=== PATIENT | male | born 1970 | race Caucasian/White ===

== ENCOUNTER 2019-09-03 20:13 | Inpatient (IN) | payer MEDICAID, OTHER, SELFPAY ==
[~2019-09-03] VITALS: Ht 193 cm; Wt 249.0 kg
[2019-09-03] MEDS ORDERED: METF-877 PO (20:25)
[2019-09-03] MEDS ORDERED: AMLO10TA5 PO (20:25)
[2019-09-03] MEDS ORDERED: NAPR250T4 PO (20:25)
[2019-09-03] MEDS ORDERED: NS 1,000 ML IV ONE (21:00)
[2019-09-03] MEDS ORDERED: MORPHINE 4 MG/ML 1ML VIAL/SYRINGE (J2270) IV ONE (21:00)
--- NOTE | 2019-09-03 22:20 | REPVR ---
PROCEDURE INFORMATION: Exam: US Duplex Left Lower Extremity Veins, Limited Exam date and time: 09/03/2019 9:53 PM Clinical history: 49 years old, male; Pain; Leg, upper and leg, lower; Left; Additional info: R/O dvt/ swelling TECHNIQUE: Imaging protocol: Real-time Duplex ultrasound of the Left Lower Extremity with 2-D acuna scale, color Doppler flow and spectral waveform analysis with image documentation. Limited exam focused on the left lower extremity veins. COMPARISON: No relevant prior studies available. FINDINGS: Left deep veins: Suboptimal visualization of the distal femoral vein. The common femoral, proximal to mid femoral and popliteal veins are patent without thrombus. Normal compressibility, augmentation response and Doppler waveforms. Left superficial veins: Unremarkable. Saphenofemoral junction is patent without thrombus. Soft tissues: Unremarkable. IMPRESSION: Somewhat limited examination without sonographic evidence of deep vein thrombosis. Electronically signed by: Dwain Simon On 09/03/2019 22:19:56 PM
[2019-09-03 22:43] LABS: BASO % 0.3 % (0.0-1.0); EOS # 0.2 10^3/uL (0.0-0.5); EOS % 1.8 % (0.0-3.0); HEMATOCRIT 41.5 % (42.0-52.0); LYMPH # 0.8 10^3/uL (1.5-5.0); LYMPH % 7.5 % (24.0-44.0); MEAN CORPUSCULAR HEMOGLOBIN 31.6 pg (27.0-33.0); MEAN CORPUSCULAR HGB CONC 31.3 g/dl (32.0-36.5); MEAN CORPUSCULAR VOLUME 100.7 fl (80.0-96.0); MONO # 0.8 10^3/uL (0.0-0.8); MONO % 7.4 % (0.0-5.0); NEUTROPHILS # 8.9 10^3/uL (1.5-8.5); NEUTROPHILS % 80.9 % (36.0-66.0); PLATELET COUNT, AUTOMATED 154 10^3/uL (150-450); RED BLOOD COUNT 4.12 10^6/uL (4.30-6.10); WHITE BLOOD COUNT 11.1 10^3/uL (4.0-10.0)
[2019-09-03 22:54] LABS: INR 1.2; PARTIAL THROMBOPLASTIN TIME 36.4 SECONDS (25.0-38.4); PROTHROMBIN TIME 14.9 SECONDS (11.8-14.0)
[2019-09-03 23:02] LABS: ALBUMIN 2.7 GM/DL (3.2-5.2); ALT/SGPT 38 U/L (12-78); BILIRUBIN,DIRECT 0.3 MG/DL (0.0-0.2); BILIRUBIN,TOTAL 0.9 MG/DL (0.2-1.0); BLOOD UREA NITROGEN 15 MG/DL (7-18); CALCIUM LEVEL 8.4 MG/DL (8.5-10.1); CARBON DIOXIDE LEVEL 33 MEQ/L (21-32); CHLORIDE LEVEL 101 MEQ/L (98-107); CREATININE FOR GFR 1.24 MG/DL (0.70-1.30); GLOMERULAR FILTRATION RATE > 60.0 (>56); GLUCOSE, FASTING 154 MG/DL (70-100); POTASSIUM SERUM 3.4 MEQ/L (3.5-5.1); SODIUM LEVEL 139 MEQ/L (136-145); TOTAL PROTEIN 6.3 GM/DL (6.4-8.2)
[2019-09-03 23:06] LABS: ERYTHROCYTE SEDIMENTATION RATE 62 mm/hr (0-20)
[2019-09-03 23:15] LABS: HEMOGLOBIN A1c 7.9 %
[2019-09-03] MEDS ORDERED: CEFTAROLINE FOSAMIL 600 MG in D5W MINI-BAG PLUS 50 ML IV ONE (23:15)
[2019-09-04] MEDS ORDERED: VANICREAM MOISTURIZING SKIN CREAM 113GM TUBE TOP PRN (00:30)
[2019-09-04] MEDS ORDERED: SENOKOT S TAB PO PRN (00:45)
[2019-09-04] MEDS ORDERED: ACETAMINOPHEN TAB 650MG DOSE (2X325MG) PO PRN (00:45)
[2019-09-04] MEDS ORDERED: GLUCOSE 4 GM CHEW TABLET PO PRN (00:45)
[2019-09-04] MEDS ORDERED: DEXTROSE 50% 50 ML SYRINGE IV PRN (00:45)
[2019-09-04] MEDS ORDERED: GLUCAGON FOR INJ 1 MG VIAL (J1610) SC PRN (00:45)
[2019-09-04 00:55] VITALS: BP 144/88
[2019-09-04] MEDS ORDERED: ceFAZolin SOD 1 GM in D5W MINI-BAG PLUS 50 ML IV SCH (01:00)
[2019-09-04] MEDS ORDERED: VANCOMYCIN HCL 750 MG, VIAL MATE ADAPTER 1 EACH in D5W 250 ML IV SCH (01:15)
--- NOTE | 2019-09-04 01:17 | HPEPDOC ---
[facility] Medical History & Physical Date of Admission Sep 03, 2019 Date of Service: Sep 03, 2019 Other Provider no PCP Attending Physician: DARIEL ORLANDO MD History and Physical CHIEF COMPLAINT: Left leg pain HISTORY OF PRESENT ILLNESS: Kvng Deal is a 49-year-old male with history of morbid obesity, type 2 diabetes, recurrent cellulitis in both legs who presents with 3-4 days of left lower extremity swelling and redness. He recently moved to [place] from [place] and has no primary care provider. He has noticed that his left leg has become more red, painful, and has more weeping then usual. He has been using towels to collect the fluid secretions from his legs and has noticed they are a darker yellow tinged color. He has been taking naproxen several times daily for his pain. He has not been ill recently and has not had any recent fevers or chills, no nausea, vomiting or diarrhea. He gets around using a cane and mostly walks, although he mainly has no feeling in the bottoms of his feet. REVIEW OF SYSTEMS: CONSTITUTIONAL: Feels well. No fever or chills HEENT: denies vision changes, no sinus problems, denies any trouble swallowing CARDIOVASCULAR: no palpitations RESPIRATORY: Denies any shortness of breath GENITOURINARY: No dysuria MUSCULOSKELETAL: Reports pain, swelling, weeping of left foot up to left groin GASTROINTESTINAL: Denies abdominal pain, no nausea/vomiting/diarrhea SKIN: No new rashes or lesions NEUROLOGICAL: No loss of sensation PSYCHIATRIC: Reports normal mood, no delusions or hallucinations ENDOCRINE: No hot/cold intolerance HEMATOLOGIC/LYMPHATIC: No easy bruising, no lumps/bumps ALLERGIC/IMMUNOLOGIC: No sinus symptoms PAST MEDICAL HISTORY: 1. History of Cellulitis in both legs 2. Morbid obesity 3. Type 2 diabetes 4. History of skin cancer 5. Chronic low back pain PAST SURGICAL HISTORY: 1. Skin cancer removal SOCIAL HISTORY: Lives at home with his son. Recently moved from [place]. Denies smoking, alcohol, illicit drugs FAMILY HISTORY: Noncontributory ALLERGIES: Please see below. HOME MEDICATIONS: Please see below. PHYSICAL EXAMINATION: VITAL SIGNS: Please see below. GENERAL APPEARANCE: Laying in bed, appears stated age, no acute distress, calm, cooperative HEENT: EOMI, PERRLA, neck is supple with no thyromegaly or lymphadenopathy RESPIRATORY: Lungs are clear to auscultation bilaterally with no adventitious breath sounds appreciated CARDIOVASCULAR: no JVD, RRR,no murmurs/rubs/gallops ABDOMEN: Soft, nontender to palpation in all four quadrants, no masses/organomegaly EXTREMITIES: The left foot is inflamed and warm to touch, there is redness from foot up to groin, there is excessive weeping throughout the leg. Palpation does not reveal any tenderness in the foot or the calf, nor any of the toes. There is no evidence of fungal infection. There is an ulcerated wound on the left lateral dumas. The patient also has a very large skin tag ~5cm in diameter on the right posterior buttocks. It is painful to touch and is currently bleeding NEUROLOGICAL: No obvious focal deficits PSYCHIATRIC: normal mood/affect Skin: No rashes or ulcers. LN: No significant cervical or inguinal lymphadenopathy LABORATORY DATA: See below. IMAGING: LOWER EXT DUPLEX: "IMPRESSION: Somewhat limited examination without sonographic evidence of deep vein thrombosis." MICROBIOLOGY: Please see below. ASSESSMENT: This is a 49-year-old male with history of type 2 diabetes, cellulitis in both legs ,and morbid obesity who presents with 3-4 days, swelling and pain in his left lower extremity up to his groin; he will be admitted for management of left lower extremity acute cellulitis PLAN: 1. Left lower extremity cellulitis: -He will be admitted for tx w IV abx & because he has difficulties walking -Patient has been afebrile but has mildly elevated WBC at 11.1. CRP found to be 18.5 and ESR 62. -There is no concern for osteomyelitis, therefore we will hold off on imaging studies for now -he received a cephalosporin in the ER we will switch to IV Vancomycin and Zosyn for now to cover both MRSA and MSSA -Elevate leg -Tramadol for pain -Pending Blood cultures, MRSA screen -PT has been consulted to see if he needs a walking aid prior to discharge 2. Type 2 diabetes: -Patient takes metformin at home. -A1c found to be 7.9% -Will start sliding scale insulin and hypoglycemic protocol while in hospital 3. Chronic hypertension: -Patient's blood pressure has been within normal limits -Continue home amlodipine 4. Large skin tag on R posterior thigh: -Patient would like to have this removed, if possible. -can f/u w Surgery on an out patient basis 5. History of skin cancer: -Patient has a large lesion on his face lateral to his nose. -Will need biopsy/removal. -can f/u w Surgery on an out patient basis 6. Morbid obesity: -BMI 67 -complicates care -Air mattress -Low carbohydrate, low-fat diet -Patient will need dietary counseling -since he has a BMI >35 and DM he is a candidate for Bariatric surgery / he can be referred to a surgeon on an out patient basis DVT ppx: SQ Heparin DISPO: likely home after more than 2 midnight's stay pending clinical improvement Vital Signs Vital Signs Date Time Temp Pulse Resp B/P (MAP) Pulse Ox O2 Delivery O2 Flow Rate FiO2 09/03/19 22:54 16 09/03/19 20:25 09/03/19 20:14 97.0 66 96 Room Air Laboratory Data Labs 24H Laboratory Tests 2 09/03/19 22:05: Immature Granulocyte % (Auto) 2.1, Neutrophils (%) (Auto) 80.9H, Lymphocytes (%) (Auto) 7.5L, Monocytes (%) (Auto) 7.4H, Eosinophils (%) (Auto) 1.8, Basophils (%) (Auto) 0.3, Neutrophils # (Auto) 8.9H, Lymphocytes # (Auto) 0.8L, Monocytes # (Auto) 0.8, Eosinophils # (Auto) 0.2, Basophils # (Auto) 0.0, Nucleated Red Blood Cells % (auto) 0.2H, Erythrocyte Sedimentation Rate 62H, Prothrombin Time 14.9H, Prothromb Time International Ratio 1.20, Activated Partial Thromboplast Time 36.4, Anion Gap 5L, Glomerular Filtration Rate > 60.0, Estimated Mean Plasma Glucose 180H, Hemoglobin A1c 7.9, Lactic Acid Level 1.6, Calcium Level 8.4L, Total Bilirubin 0.9, Direct Bilirubin 0.3H, Aspartate Amino Transf (AST/SGOT) 18, Alanine Aminotransferase (ALT/SGPT) 38, Alkaline Phosphatase 105, C-Reactive Protein, Quantitative 18.50H, Total Protein 6.3L, Albumin 2.7L, Albumin/Globulin Ratio 0.75L CBC/BMP Laboratory Tests 09/03/19 22:05 Microbiology Microbiology 09/03/19 Blood Culture, Received Pending 09/03/19 Blood Culture, Received Pending Home Medications Scheduled Amlodipine Besylate (Amlodipine Besylate) 10 Mg Tablet, 10 MG PO DAILY Metformin HCl (Metformin HCl) 1,000 Mg Tablet, 1,000 MG PO BID Scheduled PRN Naproxen (Naproxen) 250 Mg Tablet, 1,000 MG PO Q6H PRN for PAIN Allergies Coded Allergies: lisinopril (Verified Allergy, Severe, throat closure, 09/03/19) A-FIB/CHADSVASC A-FIB History Current/History of A-Fib/PAF?: No GME ATTESTATION GME ATTESTATION My faculty preceptor for this patient encounter was physically present during the encounter and was fully available. All aspects of the patient interview, examination, medical decision making process, and medical care plan development were reviewed and approved by the faculty preceptor. The faculty preceptor is aware and concurs with the plan as stated in the body of this note and will attest to such by his/her cosignature. ATTENDING NOTE I examined at 1138PM, discussed the case with , edited the note, and agree with the findings as documented. JENNIFER UMAÑA MD Sep 03, 2019 23:24 DARIEL ORLANDO MD Sep 04, 2019 01:55
[2019-09-04] MEDS ORDERED: POTASSIUM CHLORIDE 10 MEQ SR TABLET PO ONE (02:00)
[2019-09-04] MEDS: PIPERACILLIN/TAZOBACTAM SOD 3.375 GM in D5W MINI-BAG PLUS 50 ML IV SCH ×4 (02:25→21:15)
[2019-09-04] MEDS: VANCOMYCIN HCL 1,000 MG, VIAL MATE ADAPTER 1 EACH in D5W 250 ML IV SCH ×4 (03:53→18:48)
[2019-09-04 06:00] VITALS: BP 152/85
--- NOTE | 2019-09-04 07:12 | PHACANCOPD ---
PHARMACY VANCOMYCIN DOSING Pt Demographics Demographics Patient Age:49 , Weight:249.000 , Gender: male Adjusted Body Weight Date: 09/04/19, Adjusted Body Weight: Kg Events Past 24 Hours Events Past 24 Hours: YES: Elevation in WBC; NO: Dialysis, Diuretic Therapy, Change in CrCl, Fever, Pending Diagnostics, Pending Procedures, Other Vancomycin Vancomycin indication: LLE CELLULITIS, HX OF CELLULITIS Vancomycin Target Ranges: 15-20 mcg/ml Vancomycin Load Y/N: Yes Load Dose Date Time Vancomycin Load Dose: 2 grams Date: 09/04/19 Time: 0300 Vancomycin Dose Date: 09/04/19. Current Vancomycin Dose: [ 1 gram Q8H @ 1100 ] Intermittent Dosing?: No Labs Labs Vital Signs Label Value Date Time Patient Temperature 97.0 degrees F 09[birth year]04/1956 Temperature Source Temporal 09/04/1956 Patient Temperature 98.0 degrees F 09/04/1928 Temperature Source Temporal 09/04/1928 Patient Temperature 97.0 degrees F 09/03/192013 Temperature Source Temporal 09/03/192013 Blood Pressure Assessment 146/67 (93) 09/03/192013 Location Right Arm Source Automatic Cuff (NIBP) Position Sitting Blood Pressure Assessment 129/75 (93) 09/04/1928 Source Automatic Cuff (NIBP) Blood Pressure Assessment 144/88 (106) 09/04/1954 Item Value Date Time White Blood Count 11.1 10^3/uL H 09/03/192204 Erythrocyte Sedimentation Rate 62 mm/hr H 09/03/195 Creatinine 1.24 MG/DL 09/03/192204 Glomerular Filtration Rate > 60.0 09/03/192204 C-Reactive Protein, Quantitative 18.50 MG/DL H 09/03/192204 Micro Microbiology 09/03/19 Blood Culture, Received Pending 09/03/19 Blood Culture, Received Pending Creatinine Clearance Date:09/04/19. Creatinine Clearance: [ 86.528 mL/min ]. Assessment and Plan Maintaining Current Dose?: Yes Reason for dose change: No Dose Change Pharmacist Note Pharmacist Note Date: 09/04/19. Pharmacist note: 49 year old, morbidly obese male presented to [facility] after a worsening left lower extremity cellulitis, with increased weeping. He recently moved to the [facility] and has yet to establish a primary care provider. He is diabetic and has a history of cellulitis infection of the lower extremities. He was placed on broad spectrum antibiotic therapy consisting of Zosyn 3.375 grams every 6 hours and vancomycin. A loading dose of 2 grams of vancomycin was scheduled for 0300 on 09/04/19, with a subsequent maintenance dose of 1 gram every 8 hours. A trough to determine steady-state was scheduled for 1100 on 09/05/19, prior to the fourth dose. We will continue to monitor and make adjustments as needed. GILLIAN [facility]CON[facility] Sep 04, 2019 07:12
[2019-09-04] MEDS: HumaLOG INSULIN (NovoLOG) PER UNIT SC SCH ×4 (08:53→20:51)
[2019-09-04] MEDS: HEPARIN SOD (PORCINE) 5000 UNITS/ML VIAL SC SCH ×2 (08:54→21:15)
[2019-09-04] MEDS: amLODIPine 10 MG TAB PO SCH (08:54)
[2019-09-04 10:00] VITALS: BP 137/91
[2019-09-04 14:00] VITALS: BP 143/87
--- NOTE | 2019-09-04 16:55 | IPNPDOC ---
Date Seen The patient was seen on 09/04/19. Progress Note SUBJECTIVE: She 1-year-old male with past medical history of diabetes mellitus, hypertension, obstructive sleep apnea, noncompliant with CPAP, was admitted for left lotion cellulitis. He was started on vancomycin and Zosyn, remains unchanged when evaluated in the morning, no additional Lasix at this time. She denies any shortness of breath, chest pain, nausea, vomiting, abdominal pain, diarrhea. He is tolerating his diet without any difficulty. 10 point review of system is negative except for above PHYSICAL EXAMINATION: VITAL SIGNS: Please see below. GENERAL: No distress, morbidly obese HEENT: Normocephalic, atraumatic, moist mucous membranes NECK: Supple CARDIOVASCULAR EXAMINATION: S1, S2, distant heart sounds RESPIRATORY EXAMINATION: Diminished, no wheezing ABDOMINAL EXAMINATION: Soft, nontender, nondistended, positive bowel sounds EXTREMITIES: Bilateral lower extremity edema, left greater than right SKIN: Severe erythema on left lower extremity with clear drainage NEUROLOGICAL EXAMINATION: Alert and oriented 3, no focal deficits PSYCHIATRIC EXAMINATION: Calm and cooperative LABORATORY DATA, IMAGING STUDIES, MICROBIOLOGY: Please see below. DVT prophylaxis ordered?: Yes ASSESSMENT AND PLAN: 49-year-old morbidly obese male with past history of diabetes mellitus, hypertension and obstructive sleep apnea is admitted for left lotion cellulitis. PROBLEMS: 1. Cellulitis: Recurrent episode, onychomycosis noted, continue vancomycin and Zosyn, wound care consult placed, cultures pending. 2. Diabetes mellitus: Sliding scale insulin before meals and bedtime 3. Obstructive sleep apnea: Noncompliant with CPAP, as he is unable to sleep with the machine. 4. Hypertension: Continue Norvasc DVT prophylaxis: Heparin subcutaneous GI prophylaxis: Not needed VS, I&O, 24H, [facility] Vital Signs/I&O Vital Signs Date Time Temp Pulse Resp B/P (MAP) Pulse Ox O2 Delivery O2 Flow Rate FiO2 09/04/19 14:00 97.1 67 19 143/87 (105) 91 Room Air I&O- Last 24 Hours up to 6 AM 09/04/19 06:00 Intake Total 300 ml Balance 300 ml Laboratory Data 24H LABS Laboratory Tests 2 09/03/19 22:05: Immature Granulocyte % (Auto) 2.1, Neutrophils (%) (Auto) 80.9H, Lymphocytes (%) (Auto) 7.5L, Monocytes (%) (Auto) 7.4H, Eosinophils (%) (Auto) 1.8, Basophils (%) (Auto) 0.3, Neutrophils # (Auto) 8.9H, Lymphocytes # (Auto) 0.8L, Monocytes # (Auto) 0.8, Eosinophils # (Auto) 0.2, Basophils # (Auto) 0.0, Nucleated Red Blood Cells % (auto) 0.2H, Erythrocyte Sedimentation Rate 62H, Prothrombin Time 14.9H, Prothromb Time International Ratio 1.20, Activated Partial Thromboplast Time 36.4, Anion Gap 5L, Glomerular Filtration Rate > 60.0, Estimated Mean Plasma Glucose 180H, Hemoglobin A1c 7.9, Lactic Acid Level 1.6, Calcium Level 8.4L, Total Bilirubin 0.9, Direct Bilirubin 0.3H, Aspartate Amino Transf (AST/SGOT) 18, Alanine Aminotransferase (ALT/SGPT) 38, Alkaline Phosphatase 105, C-Reactive Protein, Quantitative 18.50H, Total Protein 6.3L, Albumin 2.7L, Albumin/Globulin Ratio 0.75L 09/04/19 01:11: Bedside Glucose (Misc Panel) 130H 09/04/19 06:55: Methicillin-Resist S.aureus DNA PCR NOT DETECTED 09/04/19 08:29: Bedside Glucose (Misc Panel) 116H 09/04/19 11:51: Bedside Glucose (Misc Panel) 179H CBC/BMP Laboratory Tests 09/03/19 22:05 Microbiology Microbiology 09/03/19 Blood Culture, Received Pending 09/03/19 Blood Culture, Received Pending JONNIE WHITESIDE MD Sep 04, 2019 16:55
[2019-09-04 18:00] VITALS: BP 142/73
[2019-09-04 22:00] VITALS: BP 160/67
[2019-09-05 02:00] VITALS: BP 134/68
[2019-09-05] MEDS: VANCOMYCIN HCL 1,000 MG, VIAL MATE ADAPTER 1 EACH in D5W 250 ML IV SCH ×3 (02:52→18:42)
[2019-09-05] MEDS: PIPERACILLIN/TAZOBACTAM SOD 3.375 GM in D5W MINI-BAG PLUS 50 ML IV SCH ×4 (02:52→21:01)
[2019-09-05 06:00] VITALS: BP 138/65
[2019-09-05 07:02] LABS: HEMATOCRIT 39.7 % (42.0-52.0); HEMOGLOBIN 12.1 g/dl (13.5-17.5); MEAN CORPUSCULAR HEMOGLOBIN 31.1 pg (27.0-33.0); MEAN CORPUSCULAR HGB CONC 30.5 g/dl (32.0-36.5); MEAN CORPUSCULAR VOLUME 102.1 fl (80.0-96.0); PLATELET COUNT, AUTOMATED 175 10^3/uL (150-450); RED BLOOD COUNT 3.89 10^6/uL (4.30-6.10); WHITE BLOOD COUNT 8.3 10^3/uL (4.0-10.0)
[2019-09-05 07:26] LABS: ALBUMIN 2.4 GM/DL (3.2-5.2); ALT/SGPT 29 U/L (12-78); BILIRUBIN,TOTAL 0.7 MG/DL (0.2-1.0); BLOOD UREA NITROGEN 15 MG/DL (7-18); CALCIUM LEVEL 8.5 MG/DL (8.5-10.1); CARBON DIOXIDE LEVEL 34 MEQ/L (21-32); CHLORIDE LEVEL 98 MEQ/L (98-107); GLOMERULAR FILTRATION RATE > 60.0 (>56); GLUCOSE, FASTING 152 MG/DL (70-100); SODIUM LEVEL 136 MEQ/L (136-145); TOTAL PROTEIN 6.2 GM/DL (6.4-8.2)
[2019-09-05 08:21] LABS: ERYTHROCYTE SEDIMENTATION RATE 57 mm/hr (0-20)
[2019-09-05] MEDS: HumaLOG INSULIN (NovoLOG) PER UNIT SC SCH ×4 (08:33→21:00)
[2019-09-05] MEDS: HEPARIN SOD (PORCINE) 5000 UNITS/ML VIAL SC SCH ×2 (08:33→21:02)
[2019-09-05] MEDS: amLODIPine 10 MG TAB PO SCH (08:33)
[2019-09-05 10:00] VITALS: BP 138/68
[2019-09-05 14:00] VITALS: BP 140/63
--- NOTE | 2019-09-05 15:36 | IPNPDOC ---
Text Note Date of Service The patient was seen on 09/05/19. NOTE SUBJECTIVE: Patient seen and examined at bedside. No acute overnight events, no new medical complaints. Noted to have oxygen desaturations during sleep. Requesting a fan. Objective: VITAL SIGNS: Please see below. GENERAL: No distress, morbidly obese HEENT: Normocephalic, atraumatic, moist mucous membranes NECK: Supple CARDIOVASCULAR EXAMINATION: S1, S2, distant heart sounds RESPIRATORY EXAMINATION: Diminished, no wheezing ABDOMINAL EXAMINATION: Soft, nontender, nondistended, positive bowel sounds EXTREMITIES: Bilateral lower extremity edema, left greater than right SKIN: Severe erythema on left lower extremity with clear drainage NEUROLOGICAL EXAMINATION: Alert and oriented 3, no focal deficits PSYCHIATRIC EXAMINATION: Calm and cooperative LABORATORY DATA, IMAGING STUDIES, MICROBIOLOGY: Please see below. DVT prophylaxis ordered?: Yes ASSESSMENT: 49-year-old morbidly obese male with past history of diabetes mellitus, hypertension and obstructive sleep apnea is admitted for left lotion cellulitis. PLAN: 1. Cellulitis: Recurrent episode, onychomycosis noted, continue vancomycin and Zosyn, wound care consult placed, cultures pending. 2. Diabetes mellitus: Sliding scale insulin before meals and bedtime 3. Obstructive sleep apnea: States he does not have a CPAP machine. 4. Hypertension: Continue Norvasc 5. + blood culture - echo pending #DVT prophylaxis: Heparin subcutaneous VS,Fishbone, I+O VS, Fishbone, I+O Laboratory Tests 09/05/19 06:42 Vital Signs Date Time Temp Pulse Resp B/P (MAP) Pulse Ox O2 Delivery O2 Flow Rate FiO2 09/05/19 14:00 98.2 54 22 140/63 (88) 72 Room Air I&O- Last 24 Hours up to 6 AM 09/05/19 06:00 Intake Total 1840 ml Output Total 0 ml Balance 1840 ml MAGDIEL CRAMER MD Sep 05, 2019 15:36
[2019-09-05] MEDS: traMADol 50 MG TAB PO PRN (21:01)
[2019-09-05 22:00] VITALS: BP 135/88
[2019-09-06] VITALS (7 sets, daily range): BP systolic 131–160; BP diastolic 61–84
[2019-09-06] MEDS: VANCOMYCIN HCL 1,000 MG, VIAL MATE ADAPTER 1 EACH in D5W 250 ML IV SCH ×3 (03:02→19:09)
[2019-09-06] MEDS: PIPERACILLIN/TAZOBACTAM SOD 3.375 GM in D5W MINI-BAG PLUS 50 ML IV SCH ×4 (03:02→21:34)
[2019-09-06 07:30] LABS: HEMATOCRIT 40.6 % (42.0-52.0); HEMOGLOBIN 12.4 g/dl (13.5-17.5); MEAN CORPUSCULAR HEMOGLOBIN 31.4 pg (27.0-33.0); MEAN CORPUSCULAR HGB CONC 30.5 g/dl (32.0-36.5); MEAN CORPUSCULAR VOLUME 102.8 fl (80.0-96.0); PLATELET COUNT, AUTOMATED 212 10^3/uL (150-450); RED BLOOD COUNT 3.95 10^6/uL (4.30-6.10); WHITE BLOOD COUNT 7.9 10^3/uL (4.0-10.0)
[2019-09-06 07:51] LABS: ALBUMIN 2.4 GM/DL (3.2-5.2); ALT/SGPT 27 U/L (12-78); BILIRUBIN,TOTAL 0.6 MG/DL (0.2-1.0); BLOOD UREA NITROGEN 14 MG/DL (7-18); CALCIUM LEVEL 8.8 MG/DL (8.5-10.1); CARBON DIOXIDE LEVEL 34 MEQ/L (21-32); CHLORIDE LEVEL 97 MEQ/L (98-107); CREATININE FOR GFR 1.26 MG/DL (0.70-1.30); GLOMERULAR FILTRATION RATE > 60.0 (>56); GLUCOSE, FASTING 155 MG/DL (70-100); POTASSIUM SERUM 3.9 MEQ/L (3.5-5.1); SODIUM LEVEL 139 MEQ/L (136-145); TOTAL PROTEIN 7.3 GM/DL (6.4-8.2)
[2019-09-06] MEDS: HumaLOG INSULIN (NovoLOG) PER UNIT SC SCH ×4 (08:29→21:00)
[2019-09-06] MEDS: HEPARIN SOD (PORCINE) 5000 UNITS/ML VIAL SC SCH ×2 (08:30→21:31)
[2019-09-06] MEDS: amLODIPine 10 MG TAB PO SCH (08:30)
--- NOTE | 2019-09-06 12:34 | IPNPDOC ---
Text Note Date of Service The patient was seen on 09/06/19. NOTE Subjective: Patient seen and examined at bedside. Patient desats when sleeping, but is non-compliant with supplemental oxygen. No new medical complaints. Denies chest pain, abdominal pain, N/V/D. Objective: VITAL SIGNS: Please see below. GENERAL: No distress, morbidly obese HEENT: Normocephalic, atraumatic, moist mucous membranes NECK: Supple CARDIOVASCULAR EXAMINATION: +S1S2, distant heart sounds RESPIRATORY EXAMINATION: Diminished, no wheezing ABDOMINAL EXAMINATION: Soft, nontender, nondistended, positive bowel sounds, morbidly obese EXTREMITIES: Bilateral lower extremity edema, left greater than right, significant cellulitis LLE SKIN: Severe erythema on left lower extremity with clear drainage NEUROLOGICAL EXAMINATION: Alert and oriented 3, no focal deficits PSYCHIATRIC EXAMINATION: Calm and cooperative LABORATORY DATA, IMAGING STUDIES, MICROBIOLOGY: Please see below. ASSESSMENT: 49-year-old morbidly obese male with PMHx DM, HTN, [place]OR[place] admitted for LLE cellulitis. PLAN: 1. Cellulitis: Recurrent episode, onychomycosis noted, continue vancomycin and Zosyn, wound care consult placed, cultures pending. 2. Diabetes mellitus: Sliding scale insulin before meals and bedtime 3. Obstructive sleep apnea: States he does not have a CPAP machine. Nocturnal oximetry pending. Non-compliant with supplemental oxygen -desats during sleep. 4. Hypertension: Continue Norvasc 5. + blood culture - contaminant #DVT prophylaxis: Heparin subcutaneous VS,Fishbone, I+O VS, Fishbone, I+O Laboratory Tests 09/06/19 07:10 Vital Signs Date Time Temp Pulse Resp B/P (MAP) Pulse Ox O2 Delivery O2 Flow Rate FiO2 09/06/19 08:30 67 145/66 09/06/19 06:00 97.1 18 89 Nasal Cannula 4.0 I&O- Last 24 Hours up to 6 AM 09/06/19 06:00 Intake Total 2420 ml Output Total 0 ml Balance 2420 ml MAGDIEL CRAMER MD Sep 06, 2019 12:34
[2019-09-06] MEDS: traMADol 50 MG TAB PO PRN (21:32)
[2019-09-07] VITALS (7 sets, daily range): BP systolic 136–167; BP diastolic 80–90
[2019-09-07] MEDS: PIPERACILLIN/TAZOBACTAM SOD 3.375 GM in D5W MINI-BAG PLUS 50 ML IV SCH ×4 (01:01→20:01)
[2019-09-07] MEDS: VANCOMYCIN HCL 1,000 MG, VIAL MATE ADAPTER 1 EACH in D5W 250 ML IV SCH (02:46)
[2019-09-07 06:20] LABS: HEMOGLOBIN 12.6 g/dl (13.5-17.5); MEAN CORPUSCULAR HEMOGLOBIN 31.7 pg (27.0-33.0); MEAN CORPUSCULAR HGB CONC 30.7 g/dl (32.0-36.5); MEAN CORPUSCULAR VOLUME 103.3 fl (80.0-96.0); PLATELET COUNT, AUTOMATED 209 10^3/uL (150-450); RED BLOOD COUNT 3.97 10^6/uL (4.30-6.10); WHITE BLOOD COUNT 7.9 10^3/uL (4.0-10.0)
[2019-09-07 06:48] LABS: ALBUMIN 2.4 GM/DL (3.2-5.2); ALT/SGPT 32 U/L (12-78); BILIRUBIN,TOTAL 0.6 MG/DL (0.2-1.0); BLOOD UREA NITROGEN 13 MG/DL (7-18); CARBON DIOXIDE LEVEL 34 MEQ/L (21-32); CHLORIDE LEVEL 99 MEQ/L (98-107); CREATININE FOR GFR 1.17 MG/DL (0.70-1.30); GLOMERULAR FILTRATION RATE > 60.0 (>56); GLUCOSE, FASTING 154 MG/DL (70-100); POTASSIUM SERUM 3.9 MEQ/L (3.5-5.1); SODIUM LEVEL 137 MEQ/L (136-145); TOTAL PROTEIN 7.6 GM/DL (6.4-8.2)
[2019-09-07] MEDS: HumaLOG INSULIN (NovoLOG) PER UNIT SC SCH ×4 (07:30→19:46)
[2019-09-07] MEDS: amLODIPine 10 MG TAB PO SCH (13:55)
[2019-09-07] MEDS: HEPARIN SOD (PORCINE) 5000 UNITS/ML VIAL SC SCH ×2 (13:55→20:02)
--- NOTE | 2019-09-07 19:43 | IPNPDOC ---
Date Seen The patient was seen on 09/07/19. Progress Note SUBJECTIVE: 49-year-old male with past medical history of diabetes mellitus, hypertension, obstructive sleep apnea, noncompliant with CPAP, was admitted for left lotion cellulitis. He was started on vancomycin and Zosyn, remains unchanged when evaluated in the morning, no additional Lasix at this time. She denies any shortness of breath, chest pain, nausea, vomiting, abdominal pain, diarrhea. He is tolerating his diet without any difficulty. 09/07/2019 Patient comfortably in bed, without any new complaints, remains noncompliant with CPAP, had long discussion regarding risks of untreated obstructive sleep apnea and benefits of CPAP. Patient reports that he has difficulty sleeping with CPAP on, does not wish to start using it at this time. It was extremity to the patient that he has increased risk of stroke, [place], arrhythmias and sudden ; patient understands the risks and continues to refuse CPAP. 10 point review of system is negative except for above PHYSICAL EXAMINATION: VITAL SIGNS: Please see below. GENERAL: No distress, morbidly obese HEENT: Normocephalic, atraumatic, moist mucous membranes NECK: Supple CARDIOVASCULAR EXAMINATION: S1, S2, distant heart sounds RESPIRATORY EXAMINATION: Diminished, no wheezing ABDOMINAL EXAMINATION: Soft, nontender, nondistended, positive bowel sounds EXTREMITIES: Bilateral lower extremity edema, left greater than right SKIN: Severe erythema on left lower extremity with clear drainage NEUROLOGICAL EXAMINATION: Alert and oriented 3, no focal deficits PSYCHIATRIC EXAMINATION: Calm and cooperative LABORATORY DATA, IMAGING STUDIES, MICROBIOLOGY: Please see below. DVT prophylaxis ordered?: Yes ASSESSMENT AND PLAN: 49-year-old morbidly obese male with past history of diabetes mellitus, hypertension and obstructive sleep apnea is admitted for left lower extremity cellulitis. PROBLEMS: 1. Cellulitis: Recurrent episode, onychomycosis noted, continue Zosyn, initial blood cultures grew Bacillus, likely contamination, repeat cultures negative to date. 2. Diabetes mellitus: Sliding scale insulin before meals and bedtime 3. Obstructive sleep apnea: Noncompliant with CPAP, as he is unable to sleep with the machine, spent a long time trying to convince patient to use CPAP, patient understands the risks and does not wish to use CPAP at this time. 4. Hypertension: Continue Norvasc DVT prophylaxis: Heparin subcutaneous GI prophylaxis: Not needed VS, I&O, 24H, Fishbone Vital Signs/I&O Vital Signs Date Time Temp Pulse Resp B/P (MAP) Pulse Ox O2 Delivery O2 Flow Rate FiO2 09/07/19 18:00 98.2 61 137/81 (99) 91 09/07/19 14:44 18 Nasal Cannula 2.0 I&O- Last 24 Hours up to 6 AM 09/07/19 06:00 Intake Total 1950 ml Output Total 0 ml Balance 1950 ml Laboratory Data 24H LABS Laboratory Tests 2 09/06/19 21:49: Bedside Glucose (Misc Panel) 194H 09/07/19 06:07: Nucleated Red Blood Cells % (auto) 0.3H, Anion Gap 4L, Glomerular Filtration Rate > 60.0, Calcium Level 9.0, Total Bilirubin 0.6, Aspartate Amino Transf (AST/SGOT) 20, Alanine Aminotransferase (ALT/SGPT) 32, Alkaline Phosphatase 92, Total Protein 7.6, Albumin 2.4L, Albumin/Globulin Ratio 0.46L 09/07/19 11:54: Bedside Glucose (Misc Panel) 175H 09/07/19 16:41: Bedside Glucose (Misc Panel) 186H CBC/BMP Laboratory Tests 09/07/19 06:07 Microbiology Microbiology 09/05/19 Blood Culture - Preliminary, Resulted No Growth after 48 hours. All Specime... 09/05/19 Blood Culture - Preliminary, Resulted No Growth after 48 hours. All Specime... 09/03/19 Blood Culture - Preliminary, Resulted No Growth after 72 hours. All specime... 09/03/19 Blood Culture - Final, Complete Bacillus Sp., Not Anthracis JONNIE WHITESIDE MD Sep 07, 2019 19:43
[2019-09-07] MEDS: traMADol 50 MG TAB PO PRN (20:02)
[2019-09-08 02:00] VITALS: BP 160/86
[2019-09-08] MEDS: PIPERACILLIN/TAZOBACTAM SOD 3.375 GM in D5W MINI-BAG PLUS 50 ML IV SCH ×4 (02:06→21:27)
[2019-09-08 06:00] VITALS: BP 117/56
[2019-09-08] MEDS: FUROSEMIDE 40 MG/4 ML VIAL (J1940) IV SCH ×2 (09:12→17:24)
[2019-09-08] MEDS: amLODIPine 10 MG TAB PO SCH (09:13)
[2019-09-08] MEDS: HumaLOG INSULIN (NovoLOG) PER UNIT SC SCH ×4 (09:13→21:00)
[2019-09-08] MEDS: HEPARIN SOD (PORCINE) 5000 UNITS/ML VIAL SC SCH ×2 (09:14→21:27)
[2019-09-08] MEDS: traMADol 50 MG TAB PO PRN ×2 (09:14→17:30)
[2019-09-08 10:00] VITALS: BP 186/94
--- NOTE | 2019-09-08 12:13 | IPNPDOC ---
Date Seen The patient was seen on 09/08/19. Progress Note SUBJECTIVE: 49-year-old male with past medical history of diabetes mellitus, hypertension, obstructive sleep apnea, noncompliant with CPAP, was admitted for left lotion cellulitis. He was started on vancomycin and Zosyn, remains unchanged when evaluated in the morning, no additional Lasix at this time. She denies any shortness of breath, chest pain, nausea, vomiting, abdominal pain, diarrhea. He is tolerating his diet without any difficulty. 09/07/2019 Patient comfortably in bed, without any new complaints, remains noncompliant with CPAP, had long discussion regarding risks of untreated obstructive sleep apnea and benefits of CPAP. Patient reports that he has difficulty sleeping with CPAP on, does not wish to start using it at this time. It was extremity to the patient that he has increased risk of stroke, [place], arrhythmias and sudden ; patient understands the risks and continues to refuse CPAP. 09/08/2019 Patient without complaints, denies any short of breath, chest pain, nausea, vomiting, abdominal pain or diarrhea. He reports persistent drainage of left lower extremity. 10 point review of system is negative except for above PHYSICAL EXAMINATION: VITAL SIGNS: Please see below. GENERAL: No distress, morbidly obese HEENT: Normocephalic, atraumatic, moist mucous membranes NECK: Supple CARDIOVASCULAR EXAMINATION: S1, S2, distant heart sounds RESPIRATORY EXAMINATION: Diminished, no wheezing ABDOMINAL EXAMINATION: Soft, nontender, nondistended, positive bowel sounds EXTREMITIES: Bilateral lower extremity edema, left greater than right SKIN: Left lower extremity erythema, slightly improved, continues to have clear drainage. NEUROLOGICAL EXAMINATION: Alert and oriented 3, no focal deficits PSYCHIATRIC EXAMINATION: Calm and cooperative LABORATORY DATA, IMAGING STUDIES, MICROBIOLOGY: Please see below. DVT prophylaxis ordered?: Yes ASSESSMENT AND PLAN: 49-year-old morbidly obese male with past history of maria esther betes mellitus, hypertension and obstructive sleep apnea is admitted for left lower extremity cellulitis. PROBLEMS: 1. Cellulitis: Recurrent episode, onychomycosis noted, continue Zosyn, initial blood cultures grew Bacillus, likely contamination, repeat cultures negative to date. Start Lasix 40 mg IV every 8 hours. 2. Diabetes mellitus: Sliding scale insulin before meals and bedtime 3. Obstructive sleep apnea: Noncompliant with CPAP, as he is unable to sleep with the machine, spent a long time trying to convince patient to use CPAP, patient understands the risks and does not wish to use CPAP at this time. 4. Hypertension: Continue Norvasc DVT prophylaxis: Heparin subcutaneous GI prophylaxis: Not needed VS, I&O, 24H, Fishbone Vital Signs/I&O Vital Signs Date Time Temp Pulse Resp B/P (MAP) Pulse Ox O2 Delivery O2 Flow Rate FiO2 09/08/19 09:44 18 Room Air 09/08/19 09:13 48 117/56 09/08/19 06:00 98.0 94 2.0 I&O- Last 24 Hours up to 6 AM 09/08/19 06:00 Intake Total 1800 ml Output Total 0 ml Balance 1800 ml Laboratory Data 24H LABS Laboratory Tests 2 09/07/19 16:41: Bedside Glucose (Misc Panel) 186H 09/07/19 19:42: Bedside Glucose (Misc Panel) 183H 09/08/19 06:14: Bedside Glucose (Misc Panel) 170H 09/08/19 11:31: Bedside Glucose (Misc Panel) 145H Microbiology Microbiology 09/05/19 Blood Culture - Preliminary, Resulted No Growth after 72 hours. All specime... 09/05/19 Blood Culture - Preliminary, Resulted No Growth after 72 hours. All specime... 09/03/19 Blood Culture - Preliminary, Resulted No Growth after 72 hours. All specime... 09/03/19 Blood Culture - Final, Complete Bacillus Sp., Not Anthracis JONNIE WHITESIDE MD Sep 08, 2019 12:13
[2019-09-08 14:00] VITALS: BP 148/72
--- NOTE | 2019-09-08 15:34 | ECHO ---
DATE OF PROCEDURE: 09/07/2019 DATE OF : 1970 AGE: 49 GENDER: Male HEIGHT: 76 inches WEIGHT: 548 pounds BODY SURFACE AREA: 3.4 m2 INPATIENT: [address] [place] [address], room 5151 REFERRING PHYSICIAN: Dr. Reed Turner MD INDICATION: Bacteremia. Abnormal EKG. MEASUREMENTS: 2-D Measurements: RV: 4.6 cm LV: 5.7 cm Septum: 1.4 cm Posterior wall: 1.3 cm Aortic root: 3.8 cm LA: 4.2 cm LVEF: 75% Doppler Measurements: AV: 1.66 m/s LVOT: 1.27 m/s LVOT diameter: 2.3 cm MV: E: 142, A: 109, EA ratio: 1.3 Early mitral deceleration time: 198 ms E prime medial: 9.1, A prime medial: 7.6, E prime lateral: 7.8 Average E/E prime ratio: 16.8 PCWP: 22.7 mmHg PV: 0.9 m/s Pulmonary artery acceleration time: 148 ms PASP: 17 mmHg COMMENTS: Sinus bradycardia with interventricular conduction disturbance. Technically difficult study in light of the patient's body habitus but some diagnostically useful information was still obtained. Slightly dilated and moderately hypertrophied left ventricle with hyperkinetic wall motion. Mildly dilated left atrium with grade 2 LV diastolic dysfunction and elevated estimated mean left atrial pressure. At least mildly dilated right heart chambers with normal wall motion with current Doppler estimated pulmonary arterial pressure within normal limits. We could not visualize his inferior vena cava to further estimate his central venous pressure. Normal appearing and functioning aortic valve. Borderline dilated aortic root. Slightly thickened mitral annulus with adequate leaflet excursion and no posterior systolic buckling. Trace mitral insufficiency. Could not be visualized his tricuspid or pulmonic valves very well. No pericardial effusion. If endocarditis is seriously suspect would recommend a transesophageal echocardiogram in light of the patient's body habitus and technical difficulty of this study.
[2019-09-08 20:40] VITALS: BP 136/73
[2019-09-09] MEDS: PIPERACILLIN/TAZOBACTAM SOD 3.375 GM in D5W MINI-BAG PLUS 50 ML IV SCH ×4 (01:46→22:21)
[2019-09-09] MEDS: FUROSEMIDE 40 MG/4 ML VIAL (J1940) IV SCH ×3 (01:47→22:21)
[2019-09-09 05:51] VITALS: BP 165/79
[2019-09-09 07:35] VITALS: BP 162/88
[2019-09-09 07:47] LABS: HEMATOCRIT 43.1 % (42.0-52.0); HEMOGLOBIN 13.1 g/dl (13.5-17.5); MEAN CORPUSCULAR HEMOGLOBIN 31.3 pg (27.0-33.0); MEAN CORPUSCULAR HGB CONC 30.4 g/dl (32.0-36.5); MEAN CORPUSCULAR VOLUME 102.9 fl (80.0-96.0); PLATELET COUNT, AUTOMATED 248 10^3/uL (150-450); RED BLOOD COUNT 4.19 10^6/uL (4.30-6.10); WHITE BLOOD COUNT 8.1 10^3/uL (4.0-10.0)
[2019-09-09 08:09] LABS: CALCIUM LEVEL 9.4 MG/DL (8.5-10.1); CREATININE FOR GFR 1.43 MG/DL (0.70-1.30); GLOMERULAR FILTRATION RATE 55.5 (>56); MAGNESIUM LEVEL 2.2 MG/DL (1.8-2.4); POTASSIUM SERUM 3.7 MEQ/L (3.5-5.1)
[2019-09-09 08:30] VITALS: BP 162/88
[2019-09-09] MEDS: HEPARIN SOD (PORCINE) 5000 UNITS/ML VIAL SC SCH ×2 (08:58→22:20)
[2019-09-09] MEDS: traMADol 50 MG TAB PO PRN (08:58)
[2019-09-09] MEDS: HumaLOG INSULIN (NovoLOG) PER UNIT SC SCH ×4 (08:59→22:21)
[2019-09-09] MEDS: POTASSIUM CHLORIDE 10 MEQ SR TABLET PO SCH ×2 (09:03→17:25)
[2019-09-09] MEDS: amLODIPine 10 MG TAB PO SCH (09:05)
[2019-09-09 10:50] LABS: ABG BASE EXCESS 11.4 (-2.0-2.0); ABG HCO3 35.9 MEQ/L (22.0-26.0); ABG O2 SATURATION 92.1 % (95.0-99.0); ABG PARTIAL PRESSURE CO2 45.9 mmHg (35.0-45.0); ABG PARTIAL PRESSURE O2 60.2 mmHg (75.0-100.0); ABG STANDARD HCO3 35.1 MEQ/L (22.0-26.0); ABG TOTAL CO2 37.3 MEQ/L (22.0-29.0); ABG pH (ARTERIAL) 7.511 UNITS (7.350-7.450)
[2019-09-09 12:00] VITALS: BP 142/62
[2019-09-09] MEDS: AcetaZOLAMIDE 250 MG TAB PO SCH ×2 (17:25→22:21)
--- NOTE | 2019-09-09 18:25 | IPNPDOC ---
Date Seen The patient was seen on 09/09/19. Progress Note SUBJECTIVE: 49-year-old male with past medical history of diabetes mellitus, hypertension, obstructive sleep apnea, noncompliant with CPAP, was admitted for left lotion cellulitis. He was started on vancomycin and Zosyn, remains unchanged when evaluated in the morning, no additional Lasix at this time. She denies any shortness of breath, chest pain, nausea, vomiting, abdominal pain, diarrhea. He is tolerating his diet without any difficulty. 09/07/2019 Patient comfortably in bed, without any new complaints, remains noncompliant with CPAP, had long discussion regarding risks of untreated obstructive sleep apnea and benefits of CPAP. Patient reports that he has difficulty sleeping with CPAP on, does not wish to start using it at this time. It was extremity to the patient that he has increased risk of stroke, [place], arrhythmias and sudden ; patient understands the risks and continues to refuse CPAP. 09/08/2019 Patient without complaints, denies any short of breath, chest pain, nausea, vomiting, abdominal pain or diarrhea. He reports persistent drainage of left lower extremity. 10 point review of system is negative except for above. 09/09/2019 Patient without any complaints, reports increased dyspnea due to having to walk to bathroom every few minutes after starting Lasix. He denies any short of breath, chest pain, nausea, vomiting, abdominal pain, diarrhea at this time PHYSICAL EXAMINATION: VITAL SIGNS: Please see below. GENERAL: No distress, morbidly obese HEENT: Normocephalic, atraumatic, moist mucous membranes NECK: Supple CARDIOVASCULAR EXAMINATION: S1, S2, distant heart sounds RESPIRATORY EXAMINATION: Diminished, no wheezing ABDOMINAL EXAMINATION: Soft, nontender, nondistended, positive bowel sounds EXTREMITIES: Bilateral lower extremity edema, left greater than right SKIN: Left lower extremity erythema, slightly improved, continues to have clear drainage. NEUROLOGICAL EXAMINATION: Alert and oriented 3, no focal deficits PSYCHIATRIC EXAMINATION: Calm and cooperative LABORATORY DATA, IMAGING STUDIES, MICROBIOLOGY: Please see below. DVT prophylaxis ordered?: Yes ASSESSMENT AND PLAN: 49-year-old morbidly obese male with past history of diabetes mellitus, hypertension and obstructive sleep apnea is admitted for left lower extremity cellulitis. PROBLEMS: 1. Cellulitis: Recurrent episode, onychomycosis noted, continue Zosyn, initial blood cultures grew Bacillus, likely contamination, repeat cultures negative to date. Decrease Lasix to 40 mg IV twice a day, ABG with metabolic alkalosis, start Diamox 250 mg every 6 hours. 2. Diabetes mellitus: Sliding scale insulin before meals and bedtime 3. Obstructive sleep apnea: Noncompliant with CPAP, as he is unable to sleep with the machine, spent a long time trying to convince patient to use CPAP, patient understands the risks and does not wish to use CPAP at this time. 4. Hypertension: Continue Norvasc DVT prophylaxis: Heparin subcutaneous GI prophylaxis: Not needed VS, I&O, 24H, Fishbone Vital Signs/I&O Vital Signs Date Time Temp Pulse Resp B/P (MAP) Pulse Ox O2 Delivery O2 Flow Rate FiO2 09/09/19 12:00 98.6 52 14 142/62 (88) 95 Nasal Cannula 5.0 I&O- Last 24 Hours up to 6 AM 09/09/19 05:59 Intake Total 2760 ml Output Total 0 ml Balance 2760 ml Laboratory Data 24H LABS Laboratory Tests 2 09/08/19 20:31: Bedside Glucose (Misc Panel) 189H 09/09/19 07:13: Nucleated Red Blood Cells % (auto) 0.0, Anion Gap 6L, Glomerular Filtration Rate 55.5L, Calcium Level 9.4, Magnesium Level 2.2 09/09/19 10:42: Blood Gas Bicarbonate Standard 35.1H, Arterial Blood pH 7.511H, Arterial Blood Partial Pressure CO2 45.9H, Arterial Blood Partial Pressure O2 60.2L, Arterial Blood Total CO2 37.3H, Arterial Blood HCO3 35.9H, Arterial Blood Base Excess 11.4H, Arterial Blood Oxygen Saturation 92.1L 09/09/19 11:26: Bedside Glucose (Misc Panel) 169H CBC/BMP Laboratory Tests 09/09/19 07:13 Microbiology Microbiology 09/05/19 Blood Culture - Preliminary, Resulted No Growth after 72 hours. All specime... 09/05/19 Blood Culture - Preliminary, Resulted No Growth after 72 hours. All specime... 09/03/19 Blood Culture - Final, Complete NO GROWTH AFTER 5 DAYS 09/03/19 Blood Culture - Final, Complete Bacillus Sp., Not Anthracis JONNIE WHITESIDE MD Sep 09, 2019 18:25
[2019-09-09 20:00] VITALS: BP 151/74
[2019-09-10] MEDS: PIPERACILLIN/TAZOBACTAM SOD 3.375 GM in D5W MINI-BAG PLUS 50 ML IV SCH ×4 (03:01→21:34)
[2019-09-10 06:28] VITALS: BP 143/59
[2019-09-10 06:37] LABS: HEMATOCRIT 39.8 % (42.0-52.0); HEMOGLOBIN 12.2 g/dl (13.5-17.5); MEAN CORPUSCULAR HEMOGLOBIN 31.5 pg (27.0-33.0); MEAN CORPUSCULAR HGB CONC 30.7 g/dl (32.0-36.5); MEAN CORPUSCULAR VOLUME 102.8 fl (80.0-96.0); PLATELET COUNT, AUTOMATED 230 10^3/uL (150-450); RED BLOOD COUNT 3.87 10^6/uL (4.30-6.10); WHITE BLOOD COUNT 6.9 10^3/uL (4.0-10.0)
[2019-09-10 07:13] LABS: ALBUMIN 2.6 GM/DL (3.2-5.2); BILIRUBIN,TOTAL 0.7 MG/DL (0.2-1.0); CREATININE FOR GFR 1.54 MG/DL (0.70-1.30); MAGNESIUM LEVEL 2.1 MG/DL (1.8-2.4); PHOSPHORUS LEVEL 5.6 MG/DL (2.5-4.9); POTASSIUM SERUM 4.4 MEQ/L (3.5-5.1)
[2019-09-10] MEDS: amLODIPine 10 MG TAB PO SCH (09:44)
[2019-09-10] MEDS: FUROSEMIDE 40 MG/4 ML VIAL (J1940) IV SCH (09:44)
[2019-09-10] MEDS: HEPARIN SOD (PORCINE) 5000 UNITS/ML VIAL SC SCH ×2 (09:44→21:33)
[2019-09-10] MEDS: HumaLOG INSULIN (NovoLOG) PER UNIT SC SCH ×4 (09:44→21:00)
[2019-09-10] MEDS: AcetaZOLAMIDE 250 MG TAB PO SCH ×4 (09:44→21:33)
[2019-09-10 10:18] VITALS: BP 139/68
[2019-09-10 13:55] VITALS: BP 144/66
[2019-09-10] MEDS ORDERED: FUROSEMIDE 20 MG/2 ML VIAL (J1940) IV ONE (18:15)
--- NOTE | 2019-09-10 18:31 | IPNPDOC ---
Date Seen The patient was seen on 09/10/19. Progress Note SUBJECTIVE: 49-year-old male with past medical history of diabetes mellitus, hypertension, obstructive sleep apnea, noncompliant with CPAP, was admitted for left lotion cellulitis. He was started on vancomycin and Zosyn, remains unchanged when evaluated in the morning, no additional Lasix at this time. She denies any shortness of breath, chest pain, nausea, vomiting, abdominal pain, diarrhea. He is tolerating his diet without any difficulty. 09/07/2019 Patient comfortably in bed, without any new complaints, remains noncompliant with CPAP, had long discussion regarding risks of untreated obstructive sleep apnea and benefits of CPAP. Patient reports that he has difficulty sleeping with CPAP on, does not wish to start using it at this time. It was extremity to the patient that he has increased risk of stroke, [place], arrhythmias and sudden ; patient understands the risks and continues to refuse CPAP. 09/08/2019 Patient without complaints, denies any short of breath, chest pain, nausea, vomiting, abdominal pain or diarrhea. He reports persistent drainage of left lower extremity. 10 point review of system is negative except for above. 09/09/2019 Patient without any complaints, reports increased dyspnea due to having to walk to bathroom every few minutes after starting Lasix. He denies any short of breath, chest pain, nausea, vomiting, abdominal pain, diarrhea at this time 09/10/2019 Patient continues to have good urine output with Lasix, although he is compensating by drinking 4 L of fluid yesterday, patient is on a fluid restriction, discussed the importance of diuresis with the patient and he reports that he will be compliant today with the fluid restriction. Otherwise, patient has no complaints at this time. PHYSICAL EXAMINATION: VITAL SIGNS: Please see below. GENERAL: No distress, morbidly obese HEENT: Normocephalic, atraumatic, moist mucous membranes NECK: Supple CARDIOVASCULAR EXAMINATION: S1, S2, distant heart sounds RESPIRATORY EXAMINATION: Diminished, no wheezing ABDOMINAL EXAMINATION: Soft, nontender, nondistended, positive bowel sounds EXTREMITIES: Bilateral lower extremity edema, left greater than right SKIN: Left lower extremity erythema, slightly improved, continues to have clear drainage. NEUROLOGICAL EXAMINATION: Alert and oriented 3, no focal deficits PSYCHIATRIC EXAMINATION: Calm and cooperative LABORATORY DATA, IMAGING STUDIES, MICROBIOLOGY: Please see below. DVT prophylaxis ordered?: Yes ASSESSMENT AND PLAN: 49-year-old morbidly obese male with past history of diabetes mellitus, hypertension and obstructive sleep apnea is admitted for left lower extremity cellulitis. PROBLEMS: 1. Cellulitis: Recurrent episode, continue Zosyn, repeat cultures negative, decrease Lasix to 40 mg IV today, continue Diamox 250 mg every 6 hours. 2. Diabetes mellitus: Sliding scale insulin before meals and bedtime 3. Obstructive sleep apnea: Noncompliant with CPAP, as he is unable to sleep with the machine, spent a long time trying to convince patient to use CPAP, patient understands the risks and does not wish to use CPAP at this time. 4. Hypertension: Continue Norvasc DVT prophylaxis: Heparin subcutaneous GI prophylaxis: Not needed VS, I&O, 24H, Fishbone Vital Signs/I&O Vital Signs Date Time Temp Pulse Resp B/P (MAP) Pulse Ox O2 Delivery O2 Flow Rate FiO2 09/10/19 13:55 98.0 77 22 144/66 (92) 84 Room Air 09/09/19 12:00 5.0 I&O- Last 24 Hours up to 6 AM 09/10/19 06:00 Intake Total 3300 ml Balance 3300 ml Laboratory Data 24H LABS Laboratory Tests 2 09/10/19 06:26: Nucleated Red Blood Cells % (auto) 0.0, Anion Gap 7L, Glomerular Filtration Rate 51.0L, Calcium Level 9.0, Phosphorus Level 5.6H, Magnesium Level 2.1, Total Bilirubin 0.7, Aspartate Amino Transf (AST/SGOT) 30, Alanine Aminotransferase (ALT/SGPT) 44, Alkaline Phosphatase 62, Total Protein 7.0, Albumin 2.6L, Albumin/Globulin Ratio 0.59L 09/10/19 11:10: Bedside Glucose (Misc Panel) 169H 09/10/19 16:38: Bedside Glucose (Misc Panel) 166H CBC/BMP Laboratory Tests 09/10/19 06:26 Microbiology Microbiology 09/05/19 Blood Culture - Final, Complete NO GROWTH AFTER 5 DAYS 09/05/19 Blood Culture - Final, Complete NO GROWTH AFTER 5 DAYS 09/03/19 Blood Culture - Final, Complete NO GROWTH AFTER 5 DAYS 09/03/19 Blood Culture - Final, Complete Bacillus Sp., Not Anthracis JONNIE WHITESIDE MD Sep 10, 2019 18:31
[2019-09-10 18:41] VITALS: BP 136/64
[2019-09-10 20:00] VITALS: BP 128/67
[2019-09-11 02:00] VITALS: BP 109/60
[2019-09-11] MEDS: PIPERACILLIN/TAZOBACTAM SOD 3.375 GM in D5W MINI-BAG PLUS 50 ML IV SCH ×4 (02:37→20:30)
[2019-09-11 06:00] VITALS: BP 118/53
[2019-09-11 07:22] LABS: HEMATOCRIT 43.7 % (42.0-52.0); MEAN CORPUSCULAR HEMOGLOBIN 30.8 pg (27.0-33.0); MEAN CORPUSCULAR HGB CONC 29.7 g/dl (32.0-36.5); MEAN CORPUSCULAR VOLUME 103.6 fl (80.0-96.0); PLATELET COUNT, AUTOMATED 245 10^3/uL (150-450); RED BLOOD COUNT 4.22 10^6/uL (4.30-6.10); WHITE BLOOD COUNT 6.8 10^3/uL (4.0-10.0)
[2019-09-11 08:00] LABS: ALBUMIN 2.5 GM/DL (3.2-5.2); BILIRUBIN,TOTAL 0.6 MG/DL (0.2-1.0); CALCIUM LEVEL 9.3 MG/DL (8.5-10.1); CREATININE FOR GFR 1.62 MG/DL (0.70-1.30); GLOMERULAR FILTRATION RATE 48.1 (>56); MAGNESIUM LEVEL 2.4 MG/DL (1.8-2.4); PHOSPHORUS LEVEL 5.4 MG/DL (2.5-4.9); POTASSIUM SERUM 4.5 MEQ/L (3.5-5.1); TOTAL PROTEIN 7.7 GM/DL (6.4-8.2)
[2019-09-11] MEDS: amLODIPine 10 MG TAB PO SCH (09:23)
[2019-09-11] MEDS: AcetaZOLAMIDE 250 MG TAB PO SCH (09:23)
[2019-09-11] MEDS: HEPARIN SOD (PORCINE) 5000 UNITS/ML VIAL SC SCH ×2 (09:24→20:31)
[2019-09-11] MEDS: traMADol 50 MG TAB PO PRN (09:24)
[2019-09-11] MEDS: HumaLOG INSULIN (NovoLOG) PER UNIT SC SCH ×4 (09:25→20:50)
[2019-09-11 10:00] VITALS: BP 131/68
[2019-09-11 14:00] VITALS: BP 118/58
--- NOTE | 2019-09-11 14:12 | IPNPDOC ---
Date Seen The patient was seen on 09/11/19. Progress Note SUBJECTIVE: 49-year-old male with past medical history of diabetes mellitus, hypertension, obstructive sleep apnea, noncompliant with CPAP, was admitted for left lotion cellulitis. He was started on vancomycin and Zosyn, remains unchanged when evaluated in the morning, no additional Lasix at this time. She denies any shortness of breath, chest pain, nausea, vomiting, abdominal pain, diarrhea. He is tolerating his diet without any difficulty. 09/07/2019 Patient comfortably in bed, without any new complaints, remains noncompliant with CPAP, had long discussion regarding risks of untreated obstructive sleep apnea and benefits of CPAP. Patient reports that he has difficulty sleeping with CPAP on, does not wish to start using it at this time. It was extremity to the patient that he has increased risk of stroke, [place], arrhythmias and sudden ; patient understands the risks and continues to refuse CPAP. 09/08/2019 Patient without complaints, denies any short of breath, chest pain, nausea, vomiting, abdominal pain or diarrhea. He reports persistent drainage of left lower extremity. 10 point review of system is negative except for above. 09/09/2019 Patient without any complaints, reports increased dyspnea due to having to walk to bathroom every few minutes after starting Lasix. He denies any short of breath, chest pain, nausea, vomiting, abdominal pain, diarrhea at this time 09/10/2019 Patient continues to have good urine output with Lasix, although he is compensating by drinking 4 L of fluid yesterday, patient is on a fluid restriction, discussed the importance of diuresis with the patient and he reports that he will be compliant today with the fluid restriction. Otherwise, patient has no complaints at this time. 09/11/2019 Patient laying comfortably in bed, reports mild left lower extremity pain, no other complaints at this time. Patient noncompliant with fluid restriction, had good urine output. PHYSICAL EXAMINATION: VITAL SIGNS: Please see below. GENERAL: No distress, morbidly obese HEENT: Normocephalic, atraumatic, moist mucous membranes NECK: Supple CARDIOVASCULAR EXAMINATION: S1, S2, distant heart sounds RESPIRATORY EXAMINATION: Diminished, no wheezing ABDOMINAL EXAMINATION: Soft, nontender, nondistended, positive bowel sounds EXTREMITIES: Bilateral lower extremity edema, left greater than right SKIN: Left lower extremity erythema, slightly improved, left lower extremity tender to palpation NEUROLOGICAL EXAMINATION: Alert and oriented 3, no focal deficits PSYCHIATRIC EXAMINATION: Calm and cooperative LABORATORY DATA, IMAGING STUDIES, MICROBIOLOGY: Please see below. DVT prophylaxis ordered?: Yes ASSESSMENT AND PLAN: 49-year-old morbidly obese male with past history of diabetes mellitus, hypertension and obstructive sleep apnea is admitted for left lower extremity cellulitis. PROBLEMS: 1. Cellulitis: Recurrent episode, continue Zosyn, repeat cultures negative, saline is not improving as quickly as expected, significant pain with palpation of left lower extremity, MRI ordered, discontinued Lasix and Diamox. 2. Diabetes mellitus: Sliding scale insulin before meals and bedtime 3. Obstructive sleep apnea: Noncompliant with CPAP, as he is unable to sleep with the machine, spent a long time trying to convince patient to use CPAP, patient understands the risks and does not wish to use CPAP at this time. 4. Hypertension: Continue Norvasc DVT prophylaxis: Heparin subcutaneous GI prophylaxis: Not needed VS, I&O, 24H, Fishbone Vital Signs/I&O Vital Signs Date Time Temp Pulse Resp B/P (MAP) Pulse Ox O2 Delivery O2 Flow Rate FiO2 09/11/19 11:35 Room Air 09/11/19 09:54 18 09/11/19 09:23 76 118/53 09/11/19 06:00 97.1 87 09/11/19 03:19 5.0 I&O- Last 24 Hours up to 6 AM 09/11/19 06:00 Intake Total 3945 ml Output Total 2025 ml Balance 1920 ml Laboratory Data 24H LABS Laboratory Tests 2 09/10/19 16:38: Bedside Glucose (Misc Panel) 166H 09/10/19 20:14: Bedside Glucose (Misc Panel) 218H 09/11/19 07:09: Nucleated Red Blood Cells % (auto) 0.0, Anion Gap 5L, Glomerular Filtration Rate 48.1L, Calcium Level 9.3, Phosphorus Level 5.4H, Magnesium Level 2.4, Total Bilirubin 0.6, Aspartate Amino Transf (AST/SGOT) 31, Alanine Aminotransferase (ALT/SGPT) 40, Alkaline Phosphatase 58, Total Protein 7.7, Albumin 2.5L, Albumin/Globulin Ratio 0.48L 09/11/19 11:14: Bedside Glucose (Misc Panel) 222H CBC/BMP Laboratory Tests 09/11/19 07:09 Microbiology Microbiology 09/05/19 Blood Culture - Final, Complete NO GROWTH AFTER 5 DAYS 09/05/19 Blood Culture - Final, Complete NO GROWTH AFTER 5 DAYS 09/03/19 Blood Culture - Final, Complete NO GROWTH AFTER 5 DAYS 09/03/19 Blood Culture - Final, Complete Bacillus Sp., Not Anthracis JONNIE WHITESIDE MD Sep 11, 2019 14:12
[2019-09-11 18:00] VITALS: BP 141/64
[2019-09-11 20:35] VITALS: BP 144/62
[2019-09-12] MEDS: PIPERACILLIN/TAZOBACTAM SOD 3.375 GM in D5W MINI-BAG PLUS 50 ML IV SCH ×4 (01:05→20:20)
[2019-09-12 05:30] VITALS: BP 120/61
[2019-09-12 08:52] LABS: C REACTIVE PROTEIN QUANTITATIV 1.89 MG/DL (0.00-0.30)
[2019-09-12 09:13] LABS: CALCIUM LEVEL 9.5 MG/DL (8.5-10.1); CREATININE FOR GFR 1.45 MG/DL (0.70-1.30); GLOMERULAR FILTRATION RATE 54.6 (>56); POTASSIUM SERUM 4.8 MEQ/L (3.5-5.1)
[2019-09-12] MEDS: HumaLOG INSULIN (NovoLOG) PER UNIT SC SCH ×3 (09:18→21:00)
[2019-09-12] MEDS: amLODIPine 10 MG TAB PO SCH (09:19)
[2019-09-12] MEDS: traMADol 50 MG TAB PO PRN (09:19)
[2019-09-12] MEDS: HEPARIN SOD (PORCINE) 5000 UNITS/ML VIAL SC SCH ×2 (09:19→20:20)
[2019-09-12 10:00] VITALS: BP 122/59
--- NOTE | 2019-09-12 11:11 | IPNPDOC ---
Date Seen The patient was seen on 09/12/19. Progress Note SUBJECTIVE: 49-year-old male with past medical history of diabetes mellitus, hypertension, obstructive sleep apnea, noncompliant with CPAP, was admitted for left lotion cellulitis. He was started on vancomycin and Zosyn, remains unchanged when evaluated in the morning, no additional Lasix at this time. She denies any shortness of breath, chest pain, nausea, vomiting, abdominal pain, diarrhea. He is tolerating his diet without any difficulty. 09/07/2019 Patient comfortably in bed, without any new complaints, remains noncompliant with CPAP, had long discussion regarding risks of untreated obstructive sleep apnea and benefits of CPAP. Patient reports that he has difficulty sleeping with CPAP on, does not wish to start using it at this time. It was extremity to the patient that he has increased risk of stroke, [place], arrhythmias and sudden ; patient understands the risks and continues to refuse CPAP. 09/08/2019 Patient without complaints, denies any short of breath, chest pain, nausea, vomiting, abdominal pain or diarrhea. He reports persistent drainage of left lower extremity. 10 point review of system is negative except for above. 09/09/2019 Patient without any complaints, reports increased dyspnea due to having to walk to bathroom every few minutes after starting Lasix. He denies any short of breath, chest pain, nausea, vomiting, abdominal pain, diarrhea at this time 09/10/2019 Patient continues to have good urine output with Lasix, although he is compensating by drinking 4 L of fluid yesterday, patient is on a fluid restriction, discussed the importance of diuresis with the patient and he reports that he will be compliant today with the fluid restriction. Otherwise, patient has no complaints at this time. 09/11/2019 Patient laying comfortably in bed, reports mild left lower extremity pain, no other complaints at this time. Patient noncompliant with fluid restriction, had good urine output. 09/12/2019 Patient comfortable in bed, reports improvement in leg swelling and pain, denies shortness of breath. He does report a large skin tag with erosion and drainage on the right posterior thigh, questioning if it can be surgically removed. PHYSICAL EXAMINATION: VITAL SIGNS: Please see below. GENERAL: No distress, morbidly obese HEENT: Normocephalic, atraumatic, moist mucous membranes NECK: Supple CARDIOVASCULAR EXAMINATION: S1, S2, distant heart sounds RESPIRATORY EXAMINATION: Diminished, no wheezing ABDOMINAL EXAMINATION: Soft, nontender, nondistended, positive bowel sounds EXTREMITIES: Large, pedunculated, round skin lesion on right hamstring with skin erosion and drainage along with surrounding erythema and tenderness. SKIN: Left lower extremity erythema, slightly improved, left lower extremity tender to palpation NEUROLOGICAL EXAMINATION: Alert and oriented 3, no focal deficits PSYCHIATRIC EXAMINATION: Calm and cooperative LABORATORY DATA, IMAGING STUDIES, MICROBIOLOGY: Please see below. DVT prophylaxis ordered?: Yes ASSESSMENT AND PLAN: 49-year-old morbidly obese male with past history of diabetes mellitus, hypertension and obstructive sleep apnea is admitted for left lower extremity cellulitis. PROBLEMS: 1. Cellulitis: Recurrent episode, continue Zosyn, repeat cultures negative, cellulitis improving slowly. Will consult general surgery for right hamstring growth/lesion. 2. Diabetes mellitus: Sliding scale insulin before meals and bedtime 3. Obstructive sleep apnea: Noncompliant with CPAP 4. Hypertension: Continue Norvasc DVT prophylaxis: Heparin subcutaneous GI prophylaxis: Not needed VS, I&O, [facility] Vital Signs Date Time Temp Pulse Resp B/P (MAP) Pulse Ox O2 Delivery O2 Flow Rate FiO2 09/12/19 09:19 18 Room Air 09/12/19 09:19 53 120/61 09/12/19 05:30 96.6 90 09/11/19 21:00 5.0 I&O- Last 24 Hours up to 6 AM 09/12/19 06:00 Intake Total 2200 ml Output Total 0 ml Balance 2200 ml Laboratory Data 24H LABS Laboratory Tests 2 09/11/19 11:14: Bedside Glucose (Misc Panel) 222H 09/11/19 17:13: Bedside Glucose (Misc Panel) 159H 09/11/19 20:47: Bedside Glucose (Misc Panel) 185H 09/12/19 06:23: Bedside Glucose (Misc Panel) 140H 09/12/19 08:14: Erythrocyte Sedimentation Rate 61H, Anion Gap 7L, Glomerular Filtration Rate 54.6L, Calcium Level 9.5, C-Reactive Protein, Quantitative 1.89H CBC/BMP Laboratory Tests 09/12/19 08:14 Microbiology Microbiology 09/05/19 Blood Culture - Final, Complete NO GROWTH AFTER 5 DAYS 09/05/19 Blood Culture - Final, Complete NO GROWTH AFTER 5 DAYS 09/03/19 Blood Culture - Final, Complete NO GROWTH AFTER 5 DAYS 09/03/19 Blood Culture - Final, Complete Bacillus Sp., Not Anthracis JONNIE WHITESIDE MD Sep 12, 2019 11:11
[2019-09-12] MEDS ORDERED: HYDROCORTISONE 1% CREAM 30 GM TOP PRN (12:45)
[2019-09-12 21:45] VITALS: BP 124/56
[2019-09-13] MEDS: PIPERACILLIN/TAZOBACTAM SOD 3.375 GM in D5W MINI-BAG PLUS 50 ML IV SCH ×4 (01:10→21:01)
[2019-09-13] MEDS: HumaLOG INSULIN (NovoLOG) PER UNIT SC SCH ×2 (07:30→17:50)
[2019-09-13 07:58] LABS: CALCIUM LEVEL 9.7 MG/DL (8.5-10.1); CREATININE FOR GFR 1.5 MG/DL (0.70-1.30); GLOMERULAR FILTRATION RATE 52.5 (>56); MAGNESIUM LEVEL 2.2 MG/DL (1.8-2.4); POTASSIUM SERUM 4.4 MEQ/L (3.5-5.1)
[2019-09-13] MEDS: HEPARIN SOD (PORCINE) 5000 UNITS/ML VIAL SC SCH ×2 (08:27→21:01)
[2019-09-13] MEDS: amLODIPine 10 MG TAB PO SCH (08:27)
[2019-09-13 09:05] LABS: HEMOGLOBIN 12.2 g/dl (13.5-17.5); MEAN CORPUSCULAR HEMOGLOBIN 31.2 pg (27.0-33.0); MEAN CORPUSCULAR HGB CONC 30.5 g/dl (32.0-36.5); MEAN CORPUSCULAR VOLUME 102.3 fl (80.0-96.0); PLATELET COUNT, AUTOMATED 250 10^3/uL (150-450); RED BLOOD COUNT 3.91 10^6/uL (4.30-6.10); WHITE BLOOD COUNT 6.3 10^3/uL (4.0-10.0)
[2019-09-13 13:40] VITALS: BP 124/56
[2019-09-14] MEDS: PIPERACILLIN/TAZOBACTAM SOD 3.375 GM in D5W MINI-BAG PLUS 50 ML IV SCH ×3 (02:49→14:00)
[2019-09-14 06:21] LABS: HEMATOCRIT 39.5 % (42.0-52.0); HEMOGLOBIN 12.2 g/dl (13.5-17.5); MEAN CORPUSCULAR HEMOGLOBIN 31.5 pg (27.0-33.0); MEAN CORPUSCULAR HGB CONC 30.9 g/dl (32.0-36.5); MEAN CORPUSCULAR VOLUME 102.1 fl (80.0-96.0); PLATELET COUNT, AUTOMATED 271 10^3/uL (150-450); RED BLOOD COUNT 3.87 10^6/uL (4.30-6.10); WHITE BLOOD COUNT 6.4 10^3/uL (4.0-10.0)
[2019-09-14 06:50] LABS: ALBUMIN 2.7 GM/DL (3.2-5.2); BILIRUBIN,TOTAL 0.5 MG/DL (0.2-1.0); CALCIUM LEVEL 8.8 MG/DL (8.5-10.1); CREATININE FOR GFR 1.42 MG/DL (0.70-1.30); MAGNESIUM LEVEL 2.1 MG/DL (1.8-2.4); PHOSPHORUS LEVEL 3.8 MG/DL (2.5-4.9); POTASSIUM SERUM 4.3 MEQ/L (3.5-5.1); TOTAL PROTEIN 7.8 GM/DL (6.4-8.2)
--- NOTE | 2019-09-14 07:34 | IPNPDOC ---
Date Seen The patient was seen on 09/13/19. Progress Note SUBJECTIVE: 49-year-old male with past medical history of diabetes mellitus, hypertension, obstructive sleep apnea, noncompliant with CPAP, was admitted for left lotion cellulitis. He was started on vancomycin and Zosyn, remains unchanged when evaluated in the morning, no additional Lasix at this time. She denies any shortness of breath, chest pain, nausea, vomiting, abdominal pain, diarrhea. He is tolerating his diet without any difficulty. 09/07/2019 Patient comfortably in bed, without any new complaints, remains noncompliant with CPAP, had long discussion regarding risks of untreated obstructive sleep apnea and benefits of CPAP. Patient reports that he has difficulty sleeping with CPAP on, does not wish to start using it at this time. It was extremity to the patient that he has increased risk of stroke, NC, arrhythmias and sudden ; patient understands the risks and continues to refuse CPAP. 09/08/2019 Patient without complaints, denies any short of breath, chest pain, nausea, vomiting, abdominal pain or diarrhea. He reports persistent drainage of left lower extremity. 10 point review of system is negative except for above. 09/09/2019 Patient without any complaints, reports increased dyspnea due to having to walk to bathroom every few minutes after starting Lasix. He denies any short of breath, chest pain, nausea, vomiting, abdominal pain, diarrhea at this time 09/10/2019 Patient continues to have good urine output with Lasix, although he is compensating by drinking 4 L of fluid yesterday, patient is on a fluid restriction, discussed the importance of diuresis with the patient and he reports that he will be compliant today with the fluid restriction. Otherwise, patient has no complaints at this time. 09/11/2019 Patient laying comfortably in bed, reports mild left lower extremity pain, no other complaints at this time. Patient noncompliant with fluid restriction, had good urine output. 09/12/2019 Patient comfortable in bed, reports improvement in leg swelling and pain, denies shortness of breath. He does report a large skin tag with erosion and drainage on the right posterior thigh, questioning if it can be surgically removed. 09/13/2019 Patient comfortable, reports improvement in left lower extremity pain and swelling, continues to report discomfort with growth/lesion on right buttock. PHYSICAL EXAMINATION: VITAL SIGNS: Please see below. GENERAL: No distress, morbidly obese HEENT: Normocephalic, atraumatic, moist mucous membranes NECK: Supple CARDIOVASCULAR EXAMINATION: S1, S2, distant heart sounds RESPIRATORY EXAMINATION: Diminished, no wheezing ABDOMINAL EXAMINATION: Soft, nontender, nondistended, positive bowel sounds EXTREMITIES: Large, pedunculated, round skin lesion on right hamstring with skin erosion and drainage along with surrounding erythema and tenderness. SKIN: Left lower extremity erythema, slightly improved, left lower extremity tender to palpation NEUROLOGICAL EXAMINATION: Alert and oriented 3, no focal deficits PSYCHIATRIC EXAMINATION: Calm and cooperative LABORATORY DATA, IMAGING STUDIES, MICROBIOLOGY: Please see below. DVT prophylaxis ordered?: Yes ASSESSMENT AND PLAN: 49-year-old morbidly obese male with past history of diabetes mellitus, hypertension and obstructive sleep apnea is admitted for left lower extremity cellulitis. PROBLEMS: 1. Cellulitis: Recurrent episode, continue Zosyn, repeat cultures negative, cellulitis improving. Gen. surgery consulted regarding lesion on right buttock 2. Diabetes mellitus: Sliding scale insulin before meals and bedtime 3. Obstructive sleep apnea: Noncompliant with CPAP 4. Hypertension: Continue Norvasc DVT prophylaxis: Heparin subcutaneous GI prophylaxis: Not needed VS, I&O, 24H, Fishbone Vital Signs/I&O Vital Signs Date Time Temp Pulse Resp B/P (MAP) Pulse Ox O2 Delivery O2 Flow Rate FiO2 09/13/19 13:40 98.3 62 20 124/56 (78) 93 Nasal Cannula 5.0 I&O- Last 24 Hours up to 6 AM 09/13/19 06:00 Intake Total 2090 ml Balance 2090 ml Laboratory Data 24H LABS Laboratory Tests 2 09/13/19 05:27: Nucleated Red Blood Cells % (auto) 0.0, Anion Gap 5L, Glomerular Filtration Rate 52.5L, Calcium Level 9.7, Magnesium Level 2.2 09/13/19 16:37: Bedside Glucose (Misc Panel) 255H CBC/BMP Laboratory Tests 09/13/19 05:27 Microbiology Microbiology 09/05/19 Blood Culture - Final, Complete NO GROWTH AFTER 5 DAYS 09/05/19 Blood Culture - Final, Complete NO GROWTH AFTER 5 DAYS 09/03/19 Blood Culture - Final, Complete NO GROWTH AFTER 5 DAYS 09/03/19 Blood Culture - Final, Complete Bacillus Sp., Not Anthracis JONNIE WHITESIDE MD Sep 13, 2019 20:36
[2019-09-14 08:22] VITALS: BP 150/73
[2019-09-14] MEDS: HumaLOG INSULIN (NovoLOG) PER UNIT SC SCH (08:58)
[2019-09-14 09:22] VITALS: BP 150/73
[2019-09-14] MEDS: amLODIPine 10 MG TAB PO SCH (09:22)
[2019-09-14] MEDS: HEPARIN SOD (PORCINE) 5000 UNITS/ML VIAL SC SCH (09:23)
--- NOTE | 2019-09-14 11:51 | IPNPDOC ---
Text Note Date of Service The patient was seen on 09/14/19. NOTE I evaluated Mr. Montana' skin tag on the posterior thigh. this does seem to be irritated, chronically ulcerated due to him laying on that area. No signs of uncontrolled bleeding or infection. He can follow up with me in the clinic for elective removal of the skin tag as an outpatient. for the mean time, place a foam dressing on top of the skin tag to prevent further irritation, change as needed. VS,Fishbone, I+O VS, Fishbone, I+O Laboratory Tests 09/14/19 05:51 Vital Signs Date Time Temp Pulse Resp B/P (MAP) Pulse Ox O2 Delivery O2 Flow Rate FiO2 09/14/19 09:22 69 150/73 09/14/19 08:22 98.4 18 94 Room Air 09/14/19 03:15 5.0 I&O- Last 24 Hours up to 6 AM 09/14/19 05:59 Intake Total 1340 ml Balance 1340 ml SHARI TRINIDAD MD Sep 14, 2019 11:50
[2019-09-14 12:30] VITALS: BP 151/70
[2019-09-14 14:00] VITALS: BP 146/57
--- NOTE | 2019-09-14 18:47 | DS.PDOC ---
Discharge Summary General Date of Admission Sep 03, 2019 at 23:20 Date of Discharge 09/14/2019 Attending Physician: JONNIE WHITESIDE MD Discharge Summary PROCEDURES PERFORMED DURING STAY: None. ADMITTING DIAGNOSES: 1. Cellulitis. DISCHARGE DIAGNOSES: 1. Cellulitis. COMPLICATIONS/CHIEF COMPLAINT: Cellulitis Of Left Lower Extremity. HISTORY OF PRESENT ILLNESS: 49-year-old male with past medical history of diabetes, hypertension, obstructive sleep apnea (noncompliant with CPAP), was admitted for left lower extremity cellulitis. He was treated with Zosyn for 10 days, significant improvement in left lower extremity cellulitis. He also had an ulcerated an irritated skin tag, evaluated by general surgery, recommend outpatient follow-up with removal in the outpatient setting. Patient is also a morbidly obese male with sleep apnea and noncompliance with CPAP, routinely desating in the hospital while sleeping, refusing oxygen/CPAP or outpatient follow-up for further evaluation and treatment. Patient currently comfortable and clinically back to baseline, he was stable for discharge with outpatient follow-up. HOSPITAL COURSE: As above. DISCHARGE MEDICATIONS: Please see below. ALLERGIES: Please see below. PHYSICAL EXAMINATION: VITAL SIGNS: Please see below. GENERAL: No distress, morbidly obese HEENT: Normocephalic, atraumatic, moist mucous membranes NECK: Supple CARDIOVASCULAR EXAMINATION: S1, S2, distant heart sounds RESPIRATORY EXAMINATION: Diminished, no wheezing ABDOMINAL EXAMINATION: Soft, nontender, nondistended, positive bowel sounds EXTREMITIES: Large, pedunculated, round skin lesion on right hamstring with skin erosion and drainage along with surrounding erythema and tenderness. SKIN: Left lower extremity erythema, slightly improved, left lower extremity tender to palpation NEUROLOGICAL EXAMINATION: Alert and oriented 3, no focal deficits PSYCHIATRIC EXAMINATION: Calm and cooperative LABORATORY DATA: Please see below. PROGNOSIS: Guarded ACTIVITY: As tolerated. DIET: Consistent carbs DISCHARGE PLAN: Patient will follow up with [facility], wound care and PCP in 1-2 weeks DISPOSITION: 01 Home, Self-Care. DISCHARGE INSTRUCTIONS: 1. As above. DISCHARGE CONDITION: Stable. TIME SPENT ON DISCHARGE: Greater than 35 minutes. Vital Signs/I&Os Vital Signs Date Time Temp Pulse Resp B/P (MAP) Pulse Ox O2 Delivery O2 Flow Rate FiO2 09/14/19 14:00 98.0 72 18 146/57 (86) 89 Room Air 09/14/19 03:15 5.0 I&O- Last 24 Hours up to 6 AM 09/14/19 05:59 Intake Total 1340 ml Balance 1340 ml Laboratory Data Labs 24H Laboratory Tests 2 09/14/19 05:51: Nucleated Red Blood Cells % (auto) 0.0, Anion Gap 5L, Glomerular Filtration Rate 56.0, Calcium Level 8.8, Phosphorus Level 3.8#, Magnesium Level 2.1, Total Bilirubin 0.5, Aspartate Amino Transf (AST/SGOT) 17, Alanine Aminotransferase (ALT/SGPT) 34, Alkaline Phosphatase 60, Total Protein 7.8, Albumin 2.7L, Albumin/Globulin Ratio 0.53L CBC/BMP Laboratory Tests 09/14/19 05:51 Microbiology Microbiology 09/05/19 Blood Culture - Final, Complete NO GROWTH AFTER 5 DAYS 09/05/19 Blood Culture - Final, Complete NO GROWTH AFTER 5 DAYS Discharge Medications Scheduled Amlodipine Besylate (Amlodipine Besylate) 10 Mg Tablet, 10 MG PO DAILY, (Reported) Metformin HCl (Metformin HCl) 1,000 Mg Tablet, 1,000 MG PO BID, (Reported) Scheduled PRN Naproxen (Naproxen) 250 Mg Tablet, 1,000 MG PO Q6H PRN for PAIN, (Reported) Allergies Coded Allergies: lisinopril (Verified Allergy, Severe, throat closure, 09/03/19) JONNIE WHITESIDE MD Sep 14, 2019 18:47
== END 2019-09-14 16:25 | disposition home or self-care (01) | DRG 383 ==
LOC: M ED 20:13 → M ED INP 23:20 → M MS5PR 09-04 00:55
PROVIDERS: ADMIT Internal Medicine; ATTEND Internal Medicine
DX: L03.116 Cellulitis of left lower limb (principal); I11.9 Hypertensive heart disease without heart failure; Z68.44 Body mass index [BMI] 60.0-69.9, adult; I10 Essential (primary) hypertension; G47.33 Obstructive sleep apnea (adult) (pediatric); B35.1 Tinea unguium; E66.01 Morbid (severe) obesity due to excess calories; L91.8 Other hypertrophic disorders of the skin; M54.5 Low back pain; Z85.828 Personal history of other malignant neoplasm of skin; Z79.84 Long term (current) use of oral hypoglycemic drugs; Z79.899 Other long term (current) drug therapy; Z88.8 Allergy status to other drugs, medicaments and biological substances; Z91.19 Patient's noncompliance with other medical treatment and regimen

== ENCOUNTER → 2019-09-21 | Outpatient (REF) | payer MEDICAID ==
[~2019-09-21] MED LIST: AMLO10TA5 PO; METF-877 PO; NAPR250T4 PO
== END ==
LOC: M LAB REF 09:09
PROVIDERS: ATTEND Surgery
DX: L91.8 Other hypertrophic disorders of the skin (principal)

== ENCOUNTER → 2019-12-17 | Outpatient (REF) | payer OTHER ==
[2019-12-17 14:38] LABS: BASO % 0.6 % (0.0-1.0); EOS # 0.3 10^3/uL (0.0-0.5); EOS % 5.2 % (0.0-3.0); HEMATOCRIT 44.7 % (42.0-52.0); HEMOGLOBIN 13.9 g/dl (13.5-17.5); LYMPH # 0.9 10^3/uL (1.5-5.0); LYMPH % 13.9 % (24.0-44.0); MEAN CORPUSCULAR HGB CONC 31.1 g/dl (32.0-36.5); MEAN CORPUSCULAR VOLUME 93.1 fl (80.0-96.0); MONO # 0.5 10^3/uL (0.0-0.8); MONO % 8.5 % (0.0-5.0); NEUTROPHILS # 4.6 10^3/uL (1.5-8.5); NEUTROPHILS % 71.6 % (36.0-66.0); PLATELET COUNT, AUTOMATED 169 10^3/uL (150-450); WHITE BLOOD COUNT 6.4 10^3/uL (4.0-10.0)
[2019-12-17 14:43] LABS: ALBUMIN 3.7 GM/DL (3.2-5.2); ALT/SGPT 21 U/L (12-78); BILIRUBIN,TOTAL 0.8 MG/DL (0.2-1.0); BLOOD UREA NITROGEN 17 MG/DL (7-18); CALCIUM LEVEL 9.2 MG/DL (8.5-10.1); CARBON DIOXIDE LEVEL 34 MEQ/L (21-32); CHLORIDE LEVEL 105 MEQ/L (98-107); CHOLESTEROL LEVEL 173 MG/DL (<200); CHOLESTEROL RISK RATIO 6.653 (<5); CREATININE FOR GFR 0.95 MG/DL (0.70-1.30); GLOMERULAR FILTRATION RATE > 60.0 (>56); GLUCOSE, FASTING 116 MG/DL (70-100); HDL CHOLESTEROL 26 MG/DL (>40); LDL CHOLESTEROL 121 MG/DL (<100); NON-HDL-C 147 MG/DL; POTASSIUM SERUM 4.4 MEQ/L (3.5-5.1); SODIUM LEVEL 141 MEQ/L (136-145); TOTAL PROTEIN 7.2 GM/DL (6.4-8.2); TRIGLYCERIDES LEVEL 130 MG/DL (<150)
[2019-12-17 14:53] LABS: HEMOGLOBIN A1c 7.4 %
[2019-12-17 15:07] LABS: MALB URINE SIEMENS 79.3 MG/L; MAU/CREAT RATIO 47.2 MCG/MG (0.0-30.0)
== END ==
LOC: M SFHCLERA 09:53
PROVIDERS: ATTEND Nurse Practitioner Family
DX: Z13.220 Encounter for screening for lipoid disorders (principal); I10 Essential (primary) hypertension; E11.9 Type 2 diabetes mellitus without complications
CPT/HCPCS: 80053; 80061; 82043; 83036; 85025; G0463

== ENCOUNTER → 2020-01-20 | Outpatient (REF) | payer OTHER | LOC: M LAB REF 18:45 | PROVIDERS: ATTEND Dermatology | DX: C44.311 Basal cell carcinoma of skin of nose (principal) ==

== ENCOUNTER → 2020-02-03 | Outpatient (REF) | payer OTHER | LOC: M LAB REF 09:13 | PROVIDERS: ATTEND Dermatology | DX: C44.311 Basal cell carcinoma of skin of nose (principal) ==

== ENCOUNTER → 2020-12-25 | Outpatient (CLI) | payer OTHER ==
[~2020-12-25] MED LIST changes: -AMLO10TA5 PO; +AMLO1TAB25 PO; +NAPR-849 PO; -NAPR250T4 PO
[2020-12-25 12:32] LABS: BASO # 0.1 10^3/uL (0.0-0.2); BASO % 0.7 % (0.0-1.0); EOS # 0.4 10^3/uL (0.0-0.5); HEMATOCRIT 47.4 % (42.0-52.0); HEMOGLOBIN 14.1 g/dl (13.5-17.5); LYMPH # 0.8 10^3/uL (1.5-5.0); LYMPH % 11.5 % (24.0-44.0); MEAN CORPUSCULAR HEMOGLOBIN 27.8 pg (27.0-33.0); MEAN CORPUSCULAR HGB CONC 29.7 g/dl (32.0-36.5); MEAN CORPUSCULAR VOLUME 93.5 fl (80.0-96.0); MONO # 0.5 10^3/uL (0.0-0.8); MONO % 7.5 % (2.0-8.0); NEUTROPHILS # 5.4 10^3/uL (1.5-8.5); PLATELET COUNT, AUTOMATED 178 10^3/uL (150-450); RED BLOOD COUNT 5.07 10^6/uL (4.30-6.10); WHITE BLOOD COUNT 7.2 10^3/uL (4.0-10.0)
[2020-12-25 13:03] LABS: ALBUMIN 3.8 GM/DL (3.2-5.2); ALT/SGPT 22 U/L (12-78); BILIRUBIN,TOTAL 0.5 MG/DL (0.2-1.0); BLOOD UREA NITROGEN 14 MG/DL (7-18); CALCIUM LEVEL 8.7 MG/DL (8.5-10.1); CARBON DIOXIDE LEVEL 33 MEQ/L (21-32); CHLORIDE LEVEL 106 MEQ/L (98-107); CHOLESTEROL LEVEL 175 MG/DL (<200); CHOLESTEROL RISK RATIO 6.034 (<5); CREATININE FOR GFR 0.95 MG/DL (0.70-1.30); GLOMERULAR FILTRATION RATE > 60.0 (>56); GLUCOSE, FASTING 154 MG/DL (70-100); HDL CHOLESTEROL 29 MG/DL (>40); LDL CHOLESTEROL 121 MG/DL (<100); NON-HDL-C 146 MG/DL; POTASSIUM SERUM 4.3 MEQ/L (3.5-5.1); SODIUM LEVEL 142 MEQ/L (136-145); TOTAL PROTEIN 6.8 GM/DL (6.4-8.2); TRIGLYCERIDES LEVEL 124 MG/DL (<150)
[2020-12-25 13:33] LABS: HEMOGLOBIN A1c 8.4 %
[2020-12-25 13:36] LABS: MALB URINE SIEMENS 88.6 MG/L; MAU/CREAT RATIO 51.5 MCG/MG (0.0-30.0)
== END ==
LOC: M WUC 10:05
PROVIDERS: ATTEND Nurse Practitioner Family
DX: E11.9 Type 2 diabetes mellitus without complications (principal); E78.00 Pure hypercholesterolemia, unspecified

== ENCOUNTER → 2021-02-02 | Outpatient (REF) | payer OTHER | LOC: M LAB REF 17:26 | PROVIDERS: ATTEND Dermatology | DX: C44.212 Basal cell carcinoma of skin of right ear and external auricular canal (principal); C44.612 Basal cell carcinoma of skin of right upper limb, including shoulder ==

== ENCOUNTER 2021-02-20 16:47 | Inpatient (IN) | payer OTHER ==
[2021-02-20] MEDS: SUCRALFATE 1 GM TAB PO SCH (02:45)
[~2021-02-20 16:47] MED LIST changes: -PANTOPRAZOLE 40MG TAB (PROTONIX) PO ONE; -STEG15TA PO
[2021-02-20] MEDS ORDERED: NS 1,000 ML IV ONE (18:00)
[2021-02-20] MEDS ORDERED: PANTOPRAZOLE 40MG VIAL (C9113 PER 1) IV ONE ×2 (18:00→18:25)
[2021-02-20 18:21] LABS: BASO % 0.4 % (0.0-1.0); EOS # 0.3 10^3/uL (0.0-0.5); EOS % 3.3 % (0.0-3.0); HEMATOCRIT 24.7 % (42.0-52.0); HEMOGLOBIN 7.5 g/dl (13.5-17.5); LYMPH % 10.7 % (24.0-44.0); MEAN CORPUSCULAR HEMOGLOBIN 28.7 pg (27.0-33.0); MEAN CORPUSCULAR HGB CONC 30.4 g/dl (32.0-36.5); MEAN CORPUSCULAR VOLUME 94.6 fl (80.0-96.0); MONO # 0.6 10^3/uL (0.0-0.8); MONO % 6.2 % (2.0-8.0); NEUTROPHILS # 7.5 10^3/uL (1.5-8.5); NEUTROPHILS % 78.8 % (36.0-66.0); PLATELET COUNT, AUTOMATED 203 10^3/uL (150-450); RED BLOOD COUNT 2.61 10^6/uL (4.30-6.10); WHITE BLOOD COUNT 9.6 10^3/uL (4.0-10.0)
[2021-02-20 18:31] LABS: INR 1.13; PROTHROMBIN TIME 14.8 SECONDS (12.5-14.3)
[2021-02-20] MEDS: PANTOPRAZOLE SODIUM 40 MG in D5W 50 ML IV SCH ×2 (18:43→23:36)
[2021-02-20 18:47] LABS: ALBUMIN 3.1 GM/DL (3.2-5.2); BILIRUBIN,DIRECT 0.1 MG/DL (0.0-0.2); BILIRUBIN,TOTAL 0.5 MG/DL (0.2-1.0); TOTAL PROTEIN 5.9 GM/DL (6.4-8.2)
--- NOTE | 2021-02-20 19:37 | REP ---
INDICATION: GI bleed. COMPARISON: None TECHNIQUE: Portable FINDINGS: The technique utilized in obtaining the radiograph has magnified the cardiac silhouette and attenuated the interstitial markings. There is cardiomegaly accentuated by technique. There is a diffuse haziness throughout the pulmonary vascularity. There is pulmonary vascular redistribution. There are no patchy opacities or pleural effusions. IMPRESSION: Cardiomegaly and interstitial edema consistent with CHF pattern. <Electronically signed by Flaco Riggins > 02/20/211932
[2021-02-20 19:46] LABS: BLOOD UREA NITROGEN 52 MG/DL (7-18); CALCIUM LEVEL 8.7 MG/DL (8.5-10.1); CARBON DIOXIDE LEVEL 26 MEQ/L (21-32); CHLORIDE LEVEL 111 MEQ/L (98-107); CREATININE FOR GFR 0.85 MG/DL (0.70-1.30); GLOMERULAR FILTRATION RATE > 60.0 (>56); GLUCOSE, FASTING 99 MG/DL (70-100); POTASSIUM SERUM 4.1 MEQ/L (3.5-5.1); SODIUM LEVEL 144 MEQ/L (136-145)
[2021-02-20] MEDS ORDERED: STEG15TA PO (20:19)
[2021-02-20 21:00] VITALS: BP 146/70
[2021-02-20 21:15] VITALS: BP 150/66
[2021-02-20] MEDS ORDERED: MAALOX 30 ML SUSP *UDC PO PRN (21:35)
[2021-02-20] MEDS ORDERED: GLUCAGON INJ 1MG VIAL SC PRN (21:35)
[2021-02-20] MEDS ORDERED: ACETAMINOPHEN TAB 650MG DOSE (2X325MG) PO PRN (21:35)
[2021-02-20] MEDS ORDERED: MOM 30ML SUSPENSION UDC PO PRN (21:35)
[2021-02-20] MEDS ORDERED: GLUCOSE 4GM CHEW TABLET PO PRN (21:35)
[2021-02-20] MEDS ORDERED: DEXTROSE 50% 50 ML SYRINGE IV PRN (21:35)
[2021-02-20 21:43] LABS: RSV AMPLIFICATION NEGATIVE (NEGATIVE)
--- NOTE | 2021-02-20 21:52 | HPEPDOC ---
[facility] Medical History & Physical Date of Admission February 20, 2021 Date of Service: February 20, 2021 History and Physical CHIEF COMPLAINT: Black stool HISTORY OF PRESENT ILLNESS: 50-year-old male history of obesity and [id number] diabetes and chronic pain who presents because he's noticed dark stools for the past 2 days associated with dizziness and lightheadedness which prompted him to come to the hospital. He tells me that his stools have been black which she's never experienced before. He denies any red blood per rectum or throwing up blood. Tells me that he has this chronic pain for which she takes naproxen daily he tells me he takes about 16 tablets a day each has a strength of about 220 mg and he's been doing this for very long time. He denies any chest pain or palpitations or shortness of breath. He tells me his dizziness and lightheadedness are better when he sits still he consented to receiving blood his hemoglobin was 7.5 in the emergency department. He tells me he has a chronic history of left lower extremity cellulitis for which she follows with his doctor. Patient was placed in the emergency department on a Protonix drip he'll be admitted to the medical service to trend his hemoglobin as well as evaluation by gastroenterology likely for EGD. 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 REVIEW OF SYSTEMS: 10 point review of systems complete all negative otherwise stated in HPI HOME MEDICATIONS: Please see below. PHYSICAL EXAMINATION: Constitutional: Awake and alert, in no apparent distress, morbidly obese ENT: Sclera are clear. Mucosa is moist. Respiratory: Lungs breath sounds are diminished bilaterally probably due to his large body habitus no obvious wheezing or crackles appreciated. No respiratory distress. Cardiovascular: Difficult to appreciate due to his large body habitus and his heart sounds are distant but appear to be regular in rate and rhythm Gastrointestinal: Abdomen is very large and obese, non tender. Musculoskeletal: Left extremity is dressed with Paul wrap tells me doesn't want to take it off tells me he has chronic cellulitis over the left leg Neurologic: No focal neurological deficit. Mental Status: A&O x3, normal affect LABORATORY DATA: See below. IMAGING: See chart MICROBIOLOGY: Please see below. ASSESSMENT/PLAN 50-year-old male history of diabetes and obesity presents with melena suspected to have pill-induced gastritis from excessive naproxen use will be admitted to medical service for blood transfusion, monitoring of hemoglobin, and evaluation by gastroenterology and possible EGD. # Melena: Suspected to be from upper GI bleed due to naproxen induced gastritis. GI Consulted. EGD in the AM. NPO for procedure. PPI drip. Sucrulfate. Trend HH q6h. Hgb initially 7.5, receiving 1 unit pRBC now. # DM: ISS. Frequent Accu-Cheks. Hypoglycemic precautions. # Hypertension: Continue home meds. Monitor and titrate # Chronic pain: Avoid NSAID, try to achieve pain control with Tylenol. # LLE chronic cellulitis: Fu with PCP, wound care from PT. # Obesity: BMI>60 complicates care # DVT prophylaxis: SCDs A Yousef Hospitalist Vital Signs Vital Signs Date Time Temp Pulse Resp B/P (MAP) Pulse Ox O2 Delivery O2 Flow Rate FiO2 02/20/21 21:15 97.0 71 20 150/66 97 Room Air Laboratory Data Labs 24H Laboratory Tests 2 02/20/21 17:57: Immature Granulocyte % (Auto) 0.6, Neutrophils (%) (Auto) 78.8H, Lymphocytes (%) (Auto) 10.7L, Monocytes (%) (Auto) 6.2, Eosinophils (%) (Auto) 3.3H, Basophils (%) (Auto) 0.4, Neutrophils # (Auto) 7.5, Lymphocytes # (Auto) 1.0L, Monocytes # (Auto) 0.6, Eosinophils # (Auto) 0.3, Basophils # (Auto) 0.0, Nucleated Red Blood Cells % (auto) 0.0, Prothrombin Time 14.8H, Prothromb Time International Ratio 1.13, Total Bilirubin 0.5, Direct Bilirubin 0.1, Aspartate Amino Transf (AST/SGOT) 8, Alanine Aminotransferase (ALT/SGPT) 16, Alkaline Phosphatase 61, Total Protein 5.9L, Albumin 3.1L, Albumin/Globulin Ratio 1.1 02/20/21 17:58: Anion Gap 7L, Glomerular Filtration Rate > 60.0, Calcium Level 8.7 02/20/21 20:54: Coronavirus (COVID-19)(PCR) NEGATIVE, Influenza Type A (RT-PCR) NEGATIVE, Influenza Type B (RT-PCR) NEGATIVE, Respiratory Syncytial Virus (PCR) NEGATIVE CBC/BMP Laboratory Tests 02/20/21 17:57 02/20/21 17:58 Home Medications Scheduled Amlodipine Besylate (Amlodipine Besylate) 10 Mg Tablet, 10 MG PO DAILY Ertugliflozin Pidolate (Steglatro) 15 Mg Tablet, 15 MG PO DAILY Metformin HCl (Metformin HCl) 1,000 Mg Tablet, 1,000 MG PO BID Scheduled PRN Naproxen (Naproxen) 250 Mg Tablet, 250 MG PO BID PRN for PAIN PATIENT TAKES 6-8 TABLETS BID Allergies Coded Allergies: lisinopril (Verified Allergy, Severe, throat closure, 09/03/19) A-FIB/CHADSVASC A-FIB History Current/History of A-Fib/PAF?: No MORGAN HERMAN MD February 20, 2021 21:52
[2021-02-20 22:00] VITALS: BP 171/79
[2021-02-20 23:15] VITALS: BP 171/79
[2021-02-21] VITALS (11 sets, daily range): BP systolic 107–184; BP diastolic 56–87
[2021-02-21] MEDS: HumaLOG INSULIN (NovoLOG) PER UNIT SC SCH ×5 (01:51→21:00)
[2021-02-21] MEDS: PANTOPRAZOLE SODIUM 40 MG in D5W 50 ML IV SCH ×4 (03:40→21:40)
[2021-02-21 04:06] LABS: HEMATOCRIT 28.1 % (42.0-52.0); HEMOGLOBIN 8.5 g/dl (13.5-17.5); MEAN CORPUSCULAR HGB CONC 30.2 g/dl (32.0-36.5); MEAN CORPUSCULAR VOLUME 95.9 fl (80.0-96.0); PLATELET COUNT, AUTOMATED 184 10^3/uL (150-450); RED BLOOD COUNT 2.93 10^6/uL (4.30-6.10); WHITE BLOOD COUNT 8.3 10^3/uL (4.0-10.0)
[2021-02-21 04:33] LABS: ALT/SGPT 17 U/L (12-78); BILIRUBIN,TOTAL 0.7 MG/DL (0.2-1.0); BLOOD UREA NITROGEN 41 MG/DL (7-18); CALCIUM LEVEL 8.4 MG/DL (8.5-10.1); CARBON DIOXIDE LEVEL 28 MEQ/L (21-32); CHLORIDE LEVEL 113 MEQ/L (98-107); CREATININE FOR GFR 0.89 MG/DL (0.70-1.30); GLOMERULAR FILTRATION RATE > 60.0 (>56); GLUCOSE, FASTING 105 MG/DL (70-100); MAGNESIUM LEVEL 2.3 MG/DL (1.8-2.4); POTASSIUM SERUM 3.9 MEQ/L (3.5-5.1); SODIUM LEVEL 143 MEQ/L (136-145); TOTAL PROTEIN 6.2 GM/DL (6.4-8.2)
[2021-02-21] MEDS: DOCUSATE SODIUM 100MG CAPSULE PO SCH ×2 (08:32→21:00)
[2021-02-21] MEDS ORDERED: HEPARIN SOD (PORCINE) 5000UNITS/ML 1ML VIAL/SYRINGE SC SCH (09:00)
[2021-02-21] MEDS: SUCRALFATE 1 GM TAB PO SCH ×3 (09:00→21:39)
[2021-02-21 10:02] LABS: HEMATOCRIT 27.8 % (42.0-52.0); HEMOGLOBIN 8.3 g/dl (13.5-17.5)
--- NOTE | 2021-02-21 11:03 | IPNPDOC ---
Text Note Date of Service The patient was seen on 02/21/21. NOTE Subjective: No any acute events overnight. Patient denied fever, chills, nausea, vomiting diarrhea or dysuria Objective: GENERAL APPEARANCE: Morbidly obese male HEENT: no scleral icterus, no JVD, EOMI CARDIOVASCULAR: S1S2 LUNGS: CTA ABDOMEN: soft & not tender w palpitation, obese abdomen MUSCULOSKELETAL: no cyanosis, +2 nonpitting edema with chronic skin changes consistent with venous stasis INTEGUMENT: no generalized pallor NEUROLOGICAL: cranial nerve function from 2-12 intact intact, follows commands, speech not dysarthric Assessment and plan Patient is 50-year-old male with past mental history of type 2 diabetes, morbid obesity presented to the hospital with melena secondary to naproxen. GI bleed/melena Most likely secondary to an states PPI IV, sucralfate H&H every 6 hours patient received 1 unit of blood. Hemoglobin 8.3 GI team will proceed with EGD today Type 2 diabetes Insulin sliding scale Diabetes diet Hypertension Blood pressures under control Continue home meds Morbid obesity BMI>60 Patient will benefit from bariatric surgery Complicated care VS,Donaldo, I+O VS, Donaldo, I+O Laboratory Tests 02/20/21 17:57 02/20/21 17:58 02/21/21 03:58 02/21/21 09:29 Vital Signs Date Time Temp Pulse Resp B/P (MAP) Pulse Ox O2 Delivery O2 Flow Rate FiO2 02/21/21 09:04 70 137/65 02/21/21 06:00 98.1 18 98 Room Air I&O- Last 24 Hours up to 6 AM 02/21/21 06:00 Intake Total 1890 ml Output Total 0 ml Balance 1890 ml JAMIL ACOSTA DO February 21, 2021 11:03
[2021-02-21 15:39] LABS: HEMOGLOBIN 8.4 g/dl (13.5-17.5)
[2021-02-21] MEDS ORDERED: propofoL 200 MG/20 ML VIAL As Ordered ONE (18:00)
[2021-02-21] MEDS ORDERED: LIDOCAINE 2% 100MG/5ML SDV (FOR ANES.) As Ordered ONE (18:00)
--- NOTE | 2021-02-21 19:08 | ROOR ---
Patient Name: Kvng Deal Procedure Date: 02/21/2021 6:13 PM Date of : 1970 Age: 50 Room: Main OR Gender: Male Note Status: Finalized Procedure: Upper GI endoscopy Indications: Suspected upper gastrointestinal bleeding, Acute post hemorrhagic anemia Providers: Delbert Galindo MD Referring MD: Hong Rollins Md Requesting Provider: Medicines: Monitored Anesthesia Care Complications: No immediate complications. Procedure: Pre-Anesthesia Assessment: - Prior to the procedure, a History and Physical was performed, and patient medications and allergies were reviewed. The patient is competent. The risks and benefits of the procedure and the sedation options and risks were discussed with the patient. All questions were answered and informed consent was obtained. Patient identification and proposed procedure were verified by the physician, the nurse and the anesthesiologist in the procedure room. Mental Status Examination: alert and oriented. Airway Examination: normal oropharyngeal airway and neck mobility. Respiratory Examination: clear to auscultation. CV Examination: normal. Prophylactic Antibiotics: The patient does not require prophylactic antibiotics. Prior Anticoagulants: The patient has taken no previous anticoagulant or antiplatelet agents. ASA Grade Assessment: II - A patient with mild systemic disease. After reviewing the risks and benefits, the patient was deemed in satisfactory condition to undergo the procedure. The anesthesia plan was to use monitored anesthesia care (MAC). Immediately prior to administration of medications, the patient was re-assessed for adequacy to receive sedatives. The heart rate, respiratory rate, oxygen saturations, blood pressure, adequacy of pulmonary ventilation, and response to care were monitored throughout the procedure. The physical status of the patient was re-assessed after the procedure. The Endoscope was introduced through the mouth, and advanced to the third part of duodenum. The upper GI endoscopy was accomplished without difficulty. The patient tolerated the procedure well. Findings: The examined esophagus was normal. The Z-line was irregular and was found at the gastroesophageal junction. Scattered moderate inflammation characterized by congestion (edema), erythema and granularity was found in the gastric antrum. There is no endoscopic evidence of bleeding or ulceration in the gastric body and in the gastric antrum. The ampulla, duodenal bulb, second portion of the duodenum and third portion of the duodenum were normal. Impression: - Normal esophagus. - Z-line irregular, at the gastroesophageal junction. - Gastritis. - Normal ampulla, duodenal bulb, second portion of the duodenum and third portion of the duodenum. - No specimens collected. Recommendation: - Patient has a contact number available for emergencies. The signs and symptoms of potential delayed complications were discussed with the patient. Return to normal activities tomorrow. Written discharge instructions were provided to the patient. - High fiber diet. - Continue present medications. - Use Protonix (pantoprazole) 40 mg PO daily for 8 weeks. - Perform a colonoscopy at the next available appointment after the bowel preparation if the patient agrees. - Return to primary care physician. Procedure Code(s): --- Professional --- 08248, Esophagogastroduodenoscopy, flexible, transoral; diagnostic, including collection of specimen(s) by brushing or washing, when performed (separate procedure) Diagnosis Code(s): --- Professional --- K22.8, Other specified diseases of esophagus K29.70, Gastritis, unspecified, without bleeding D62, Acute posthemorrhagic anemia CPT copyright 2019 [employer]. All rights reserved. The codes documented in this report are preliminary and upon doll eye setter review may be revised to meet current compliance requirements. Delbert Galindo MD Delbert Galindo MD 02/21/2021 7:07:55 PM Electronically signed by Delbert Galindo MD Number of Addenda: 0 Note Initiated On: 02/21/2021 6:13 PM Estimated Blood Loss: Estimated blood loss: none.
[2021-02-21] MEDS ORDERED: ONDANSETRON 4MG/2ML VIAL IV PRN (19:30)
[2021-02-21] MEDS: MIRALAX *UNIT DOSE* 17GM PACKET PO SCH (21:00)
[2021-02-22 02:00] VITALS: BP 155/61
[2021-02-22 06:00] VITALS: BP 152/63
[2021-02-22] MEDS ORDERED: DIMETHICONE 2% OINTMENT(VANICREAM) 70GM TUBE TOP SCH (09:00)
[2021-02-22] MEDS ORDERED: PANTOPRAZOLE 40MG TAB (PROTONIX) PO SCH (09:00)
[2021-02-22] MEDS: DOCUSATE SODIUM 100MG CAPSULE PO SCH (09:00)
[2021-02-22] MEDS: MIRALAX *UNIT DOSE* 17GM PACKET PO SCH (09:00)
--- NOTE | 2021-02-22 09:20 | ECGEPIP ---
[facility] Test Date: 2021-02-20 Pat Name: RAY REA Department: Room: [place] [address] Gender: Male Gar[place] Maker: TYLER : 1970 Requested By: Lewis Vaughn Order Number: [id number] Reading MD: Shaheen Jain Measurements Intervals [place] Rate: 64 P: W[place]: 200 QRS: 236 QRSD: 124 T: 155 QT: 456 QTc: 470 Interpretive Statements considerable motion artifact Suspected incorrect limb lead placement Probable sinus rhythm First-degree AV block Right bundle branch block with poor R wave progression and persistent S waves V5 and V6. No prior tracing for comparison. Clincal correlation advised Electronically Signed on 02-22-2021 9:20:04 EDT by Shaheen Jain
[2021-02-22] MEDS: HumaLOG INSULIN (NovoLOG) PER UNIT SC SCH (09:33)
[2021-02-22] MEDS: SUCRALFATE 1 GM TAB PO SCH (09:33)
[2021-02-22 09:34] VITALS: BP 116/61
[2021-02-22] MEDS ORDERED: PANT40TA29 PO (10:29)
[2021-02-22] MEDS ORDERED: SUCR1TA PO (10:29)
[2021-02-22] MEDS ORDERED: DOK1CAP7 PO (10:29)
[2021-02-22] MEDS ORDERED: ACET1TAB55 PO (10:29)
--- NOTE | 2021-02-22 15:56 | DS.PDOC ---
Discharge Summary General Date of Admission February 20, 2021 at 21:32 Date of Discharge 02/22/21 Discharge Summary PROCEDURES PERFORMED DURING STAY: [None]. ADMITTING DIAGNOSES: GI bleed/melena Hypertension Type 2 diabetes Morbid obesity DISCHARGE DIAGNOSES: GI bleed/melena Hypertension Type 2 diabetes Morbid obesity COMPLICATIONS/CHIEF COMPLAINT: Cellulitis Of Left Lower Extremity,Nsaid Induced G. HISTORY OF PRESENT ILLNESS: Patient is 50-year-old male with past mental history of type 2 diabetes, morbid obesity presented to the hospital with melena secondary to naproxen. HOSPITAL COURSE: During hospital stay following issues addressed GI bleed/melena Most likely secondary to NSAIDs Patient received PPI IV, sucralfate H&H every 6 hours patient received 1 unit of blood. Hemoglobin 8.3 GI team did EGD. Patient was found to have gastritis. GI team recommended follow-up for colonoscopy Type 2 diabetes Insulin sliding scale Diabetes diet Hypertension Blood pressures under control Continue home meds Morbid obesity BMI>60 Patient will benefit from bariatric surgery Complicated care DISCHARGE MEDICATIONS: Please see below. ALLERGIES: Please see below. PHYSICAL EXAMINATION ON DISCHARGE: VITAL SIGNS: Please see below. GENERAL APPEARANCE: Morbidly obese male HEENT: no scleral icterus, no JVD, EOMI CARDIOVASCULAR: S1S2 LUNGS: CTA ABDOMEN: soft & not tender w palpitation, obese abdomen MUSCULOSKELETAL: no cyanosis, +2 nonpitting edema with chronic skin changes consistent with venous stasis INTEGUMENT: no generalized pallor NEUROLOGICAL: cranial nerve function from 2-12 intact intact, follows commands, speech not dysarthric LABORATORY DATA: Please see below. IMAGING: TECHNIQUE: Portable FINDINGS: The technique utilized in obtaining the radiograph has magnified the cardiac silhouette and attenuated the interstitial markings. There is cardiomegaly accentuated by technique. There is a diffuse haziness throughout the pulmonary vascularity. There is pulmonary vascular redistribution. There are no patchy opacities or pleural effusions. IMPRESSION: Cardiomegaly and interstitial edema consistent with CHF pattern. PROGNOSIS: Fair ACTIVITY: [As tolerated]. DIET: Cardiac DISPOSITION: 01 Home, Self-Care. DISCHARGE INSTRUCTIONS: Avoid NSAIDS ITEMS TO FOLLOWUP ON ON OUTPATIENT: Follow-up with GI team for colonoscopy DISCHARGE CONDITION: [Stable]. TIME SPENT ON DISCHARGE: 40minutes. Vital Signs/I&Os Vital Signs Date Time Temp Pulse Resp B/P (MAP) Pulse Ox O2 Delivery O2 Flow Rate FiO2 02/22/21 09:34 67 116/61 02/22/21 06:00 98.8 20 93 02/21/21 23:40 Room Air 02/21/21 19:20 10.0 I&O- Last 24 Hours up to 6 AM 02/22/21 06:00 Intake Total 1530 ml Output Total 0 ml Balance 1530 ml Laboratory Data Labs 24H Laboratory Tests 2 02/21/21 16:46: Bedside Glucose (Misc Panel) 90 02/21/21 20:35: Bedside Glucose (Misc Panel) 83 02/22/21 06:12: Bedside Glucose (Misc Panel) 136H 02/22/21 11:23: Bedside Glucose (Misc Panel) 188H FSBS Laboratory Tests Test 02/21/21 16:46 02/21/21 20:35 02/22/21 06:12 02/22/21 11:23 Range/Units Bedside Glucose (Misc Panel) 90 83 136 188 70-105 MG/DL Discharge Medications Scheduled Amlodipine Besylate (Amlodipine Besylate) 10 Mg Tablet, 10 MG PO DAILY, (Reported) Ertugliflozin Pidolate (Steglatro) 15 Mg Tablet, 15 MG PO DAILY, (Reported) Metformin HCl (Metformin HCl) 1,000 Mg Tablet, 1,000 MG PO BID, (Reported) Pantoprazole Sodium (Pantoprazole Sodium) 40 Mg Tablet.dr, 40 MG PO BID Sucralfate (Sucralfate) 1 Gm Tablet, 1 GM PO TID Scheduled PRN Acetaminophen (Acetaminophen) 325 Mg Tablet, 650 MG PO Q4H PRN for PAIN OR FEVER Docusate Sodium (Dok) 100 Mg Capsule, 100 MG PO BID PRN for constipation Allergies Coded Allergies: lisinopril (Verified Allergy, Severe, throat closure, 09/03/19) JAMIL ACOSTA DO February 22, 2021 15:56
== END 2021-02-22 12:40 | disposition home or self-care (01) | DRG 241 ==
LOC: M ED 16:47 → M ED INP 21:32 → ENRESERV 02-21 01:45 → M MSPAV 02-21 02:46
PROVIDERS: ADMIT Family Medicine; ATTEND Internal Medicine
PROC: 0DJ08ZZ Inspection of Upper Intestinal Tract, Via Natural or Artificial Opening Endoscopic (ICD-10-PCS; principal; 2021-02-21 17:00)
DX: K29.70 Gastritis, unspecified, without bleeding (principal); D62 Acute posthemorrhagic anemia; K22.8 Other specified diseases of esophagus; Z68.44 Body mass index [BMI] 60.0-69.9, adult; E66.01 Morbid (severe) obesity due to excess calories; K92.1 Melena; E11.9 Type 2 diabetes mellitus without complications; G89.29 Other chronic pain; R42 Dizziness and giddiness; F17.200 Nicotine dependence, unspecified, uncomplicated; Z20.822 Contact with and (suspected) exposure to COVID-19; Z79.84 Long term (current) use of oral hypoglycemic drugs; Z79.899 Other long term (current) drug therapy; Z88.8 Allergy status to other drugs, medicaments and biological substances

== ENCOUNTER → 2021-02-20 | Outpatient (REF) | payer OTHER ==
[~2021-02-20] MED LIST changes: +PANTOPRAZOLE 40MG TAB (PROTONIX) PO ONE; +STEG15TA PO
== END ==
LOC: M SFHCLERA 14:26
PROVIDERS: ATTEND Nurse Practitioner Family
DX: K92.1 Melena (principal); R42 Dizziness and giddiness

== ENCOUNTER → 2021-03-08 | Outpatient (REF) | payer OTHER ==
[~2021-03-08] MED LIST changes: +ACET1TAB55 PO; +DOK1CAP7 PO; +PANT40TA29 PO; +STEG15TA PO; +SUCR1TA PO
== END ==
LOC: M LAB REF 17:09
PROVIDERS: ATTEND Dermatology
DX: C44.91 Basal cell carcinoma of skin, unspecified (principal)

== ENCOUNTER → 2021-03-30 | Outpatient (CLI) | payer OTHER ==
[2021-03-30 11:37] LABS: HEMATOCRIT 32.3 % (42.0-52.0); HEMOGLOBIN 8.8 g/dl (13.5-17.5); MEAN CORPUSCULAR HEMOGLOBIN 23.6 pg (27.0-33.0); MEAN CORPUSCULAR HGB CONC 27.2 g/dl (32.0-36.5); MEAN CORPUSCULAR VOLUME 86.6 fl (80.0-96.0); PLATELET COUNT, AUTOMATED 262 10^3/uL (150-450); RED BLOOD COUNT 3.73 10^6/uL (4.30-6.10); WHITE BLOOD COUNT 7.8 10^3/uL (4.0-10.0)
[2021-03-30 14:52] LABS: BLOOD UREA NITROGEN 11 MG/DL (7-18); CREATININE FOR GFR 0.88 MG/DL (0.70-1.30); FERRITIN 8 NG/ML (26-388); GLOMERULAR FILTRATION RATE > 60.0 (>56); IRON (FE) 15 UG/DL (65-175); PERCENT SATURATION 3.6 % (19.7-50.0); TOTAL IRON BINDING CAPACITY 419 UG/DL (250-450)
[2021-03-30 14:58] LABS: FOLATE 8.3 NG/ML; VITAMIN B12 LEVEL 264 PG/ML
== END ==
LOC: M WUC 09:43
PROVIDERS: ATTEND Internal Medicine Gastroenterology
DX: D62 Acute posthemorrhagic anemia (principal)

== ENCOUNTER → 2021-03-30 | Outpatient (CLI) | payer OTHER ==
[2021-03-30 14:12] LABS: HEMOGLOBIN A1c 6.8 %
== END ==
LOC: M WUC 09:46
PROVIDERS: ATTEND Nurse Practitioner Family
DX: E11.65 Type 2 diabetes mellitus with hyperglycemia (principal)

== ENCOUNTER 2021-04-26 15:27 | Observation (INO) | payer OTHER ==
[2021-04-26] MEDS ORDERED: DEXTROSE 50% 50 ML SYRINGE IV PRN (19:00)
[2021-04-26] MEDS ORDERED: GLUCOSE 4GM CHEW TABLET PO PRN (19:00)
[2021-04-26] MEDS ORDERED: GLUCAGON INJ 1MG VIAL SC PRN (19:00)
--- NOTE | 2021-04-26 19:17 | HPEPDOC ---
[facility] Medical History & Physical Date of Admission Apr 26, 2021 Date of Service: Apr 26, 2021 Attending Physician: DARIEL ORLANDO MD History and Physical CHIEF COMPLAINT: [51 y/o male direct admit] HISTORY OF PRESENT ILLNESS: [This is a 51 y/o male with a pmh of htn, dm2, rosina, morbid obesity, blood loss anemia 2/2 gi bleed who is seen [facility] by myself on the evening of 04/26 the night before a scheduled colonoscopy. Patient has apparently had a history of gi bleeding and blood loss anemia that has required transfusions in the past. On this suspicion, he was admitted for hospitalist evaluation to make sure that he does not need blood before his procedure. As of my exam, patient has no acute complaints. Patient states that he has felt weak and tired lately but feels as though this is due to his weight and possible deconditioning. Patient states that he has not been able to walk much lately due to pain in his knees. Patient also admits to some swelling of his left leg but states that that has been like that for some time. Patient is denying dark stools, brbpr, calf pain, chest pain, sob, wheezing, cough, hemoptysis, acute back pain, dysuria, hematuria, fevers, chills.] PAST MEDICAL HISTORY: 1. [See HPI PAST SURGICAL HISTORY: 1. [Tonsillectomy]. 2. [Umbilical hernia repair]. SOCIAL HISTORY: Tobacco use:[Current 1/2 ppd smoker] ETOH: [Denies] Illicit drug use: [Denies] FAMILY HISTORY: Mother - DM ALLERGIES: Please see below. REVIEW OF SYSTEMS: CONSTITUTIONAL: [See HPI]. HEENT: [Denies uri sx]. CARDIOVASCULAR: [See HPi]. RESPIRATORY: [See HPI]. GASTROINTESTINAL: [See HPI]. GENITOURINARY: [See HPI]. SKIN: [Admits to darkening of the skin on b/l lower extremities]. MUSCULOSKELETAL: [See HPI]. NEUROLOGICAL: [Denies syncope, dizziness, paresthesias]. ENDOCRINE: [Hx of DM]. HEMATOLOGIC/LYMPHATIC: [Denies easy bruising]. HOME MEDICATIONS: Please see below. PHYSICAL EXAMINATION: VITAL SIGNS: Please see below. GENERAL APPEARANCE: [This is a morbidly obese 51 y/o male. He does not appear to be in any acute respiratory distress.]. HEENT: [No mass or lesion. EOMI. No scleral icterus. Nares patent. Oral mucosa moist. Poor dentition.]. CARDIOVASCULAR: [Regular rate, rhythm. No murmurs, rubs, gallops]. LUNGS: [Breath sounds decreased d/t body habitus. No wheezing, rales, rhonchi.]. ABDOMEN: [Soft, nontender]. MUSCULOSKELETAL: [No joint deformity]. EXTREMITIES: [Lower extremities are dusky red color b/l consistent with chronic pvd, trace edema is noted to left lower extremity. No areas of fluctuance. No obvious open wounds or drainage. Pulses palpable.]. NEUROLOGICAL: [Speech clear. Patient moves all fours freely during exam. A+Ox3. No focal deficits]. PSYCHIATRIC: [Mood and affect appear appropriate.]. LABORATORY DATA: See below. IMAGING: [None performed.] MICROBIOLOGY: Please see below. ASSESSMENT: [This is a 51 y/o male with a pmh of htn, dm2, rosina, morbid obesity, blood loss anemia 2/2 gi bleed sent to hospital to be evaluated for need for blood transfusion before colonoscopy.]. . PLAN: 1. [GI bleed - Colonoscopy to be performed by Dr. Galindo, GI, tomorrow. Consult is placed. - Bowel prep per GI - NPO overnight - CBC drawn - hemoglobin is 8.8. Transfusion not indicated. - Goal hb in this patient is 8 - Admit to med surg for procedure 2. DM - sliding scale insulin - hypoglycemic protocol 3. HTN - continue amlodipine 4. Nicotine dependence - patch ordered DVT prophylaxis - Mechanical d/t procedure]. Home Medications Scheduled Acetaminophen (Acetaminophen 8 Hour) 650 Mg Tablet.er, 650 MG PO BID Amlodipine Besylate (Amlodipine Besylate) 10 Mg Tablet, 10 MG PO DAILY Docusate Sodium (Docusate Sodium) 100 Mg Capsule, 100 MG PO BID Ertugliflozin Pidolate (Steglatro) 15 Mg Tablet, 15 MG PO DAILY Metformin HCl (Metformin HCl) 1,000 Mg Tablet, 1,000 MG PO BID Allergies Coded Allergies: lisinopril (Verified Allergy, Severe, throat closure, 09/03/19) A-FIB/CHADSVASC A-FIB History Current/History of A-Fib/PAF?: No Attending Note Attending Note Time of service 7:40 PM Mr. Deal is a 51 yr old who was admitted at the request of Dr. Galindo for monitoring while completing his bowel prep prior to endoscopy His physical exam is remarkable for generalized pallor. He will be admitted for management blood loss anemia. He has Class 3 obesity which complicates his care Plan: NPO /follow-up serial hemoglobin and iron studies/follow-up with Dr. Galindo in the morning for endoscopy Rest per JOHN Ramirez's H&P LATE ENTRY 204AM The patient's blood pressure has dropped a little bit. We will start IV fluids and discontinue his amlodipine TOBIAS RAMIREZ Apr 26, 2021 19:17 DARIEL ORLANDO MD Apr 27, 2021 02:02
[2021-04-26 19:22] VITALS: BP 157/88
[2021-04-26] MEDS ORDERED: NICOTINE 14 MG/24 HR TRANSDERMAL TD PRN (19:35)
[2021-04-26] MEDS ORDERED: NYSTATIN 100,000 UNITS/GM TOPICAL PWD 15 GM TOP PRN (19:35)
[2021-04-26] MEDS ORDERED: DOCU100C16 PO (19:44)
[2021-04-26] MEDS ORDERED: QC A650T3 PO (19:44)
[2021-04-26 19:54] LABS: HEMOGLOBIN 8.8 g/dl (13.5-17.5); MEAN CORPUSCULAR HEMOGLOBIN 21.9 pg (27.0-33.0); MEAN CORPUSCULAR HGB CONC 26.7 g/dl (32.0-36.5); MEAN CORPUSCULAR VOLUME 82.1 fl (80.0-96.0); PLATELET COUNT, AUTOMATED 245 10^3/uL (150-450); RED BLOOD COUNT 4.02 10^6/uL (4.30-6.10); WHITE BLOOD COUNT 9.1 10^3/uL (4.0-10.0)
[2021-04-26 20:09] LABS: BLOOD UREA NITROGEN 9 MG/DL (7-18); CALCIUM LEVEL 8.9 MG/DL (8.5-10.1); CARBON DIOXIDE LEVEL 26 MEQ/L (21-32); CHLORIDE LEVEL 110 MEQ/L (98-107); CREATININE FOR GFR 0.78 MG/DL (0.70-1.30); GLOMERULAR FILTRATION RATE > 60.0 (>56); GLUCOSE, FASTING 103 MG/DL (70-100); INR 1.12; PROTHROMBIN TIME 14.7 SECONDS (12.5-14.3); SODIUM LEVEL 143 MEQ/L (136-145)
[2021-04-26] MEDS: DOCUSATE SODIUM 100MG CAPSULE PO SCH (20:53)
[2021-04-26] MEDS ORDERED: BISACODYL 5 MG TAB PO ONE (21:35)
[2021-04-26 22:00] VITALS: BP 117/80
[2021-04-27] MEDS: NS 1,000 ML IV SCH ×2 (02:55→13:15)
[2021-04-27 06:00] VITALS: BP 150/80
[2021-04-27] MEDS: HumaLOG INSULIN (NovoLOG) PER UNIT SC SCH ×3 (06:00→12:00)
[2021-04-27] MEDS ORDERED: MIRALAX *UNIT DOSE* 17GM PACKET PO STA (08:03)
[2021-04-27] MEDS ORDERED: BISACODYL 5 MG TAB PO ONE (08:30)
[2021-04-27] MEDS: DOCUSATE SODIUM 100MG CAPSULE PO SCH (08:35)
[2021-04-27 09:09] LABS: BASO % 0.6 % (0.0-1.0); EOS # 0.3 10^3/uL (0.0-0.5); HEMATOCRIT 31.8 % (42.0-52.0); HEMOGLOBIN 8.4 g/dl (13.5-17.5); LYMPH # 0.9 10^3/uL (1.5-5.0); LYMPH % 12.4 % (24.0-44.0); MEAN CORPUSCULAR HEMOGLOBIN 21.9 pg (27.0-33.0); MEAN CORPUSCULAR HGB CONC 26.4 g/dl (32.0-36.5); MONO # 0.4 10^3/uL (0.0-0.8); MONO % 6.1 % (2.0-8.0); NEUTROPHILS # 5.4 10^3/uL (1.5-8.5); NEUTROPHILS % 76.6 % (36.0-66.0); PLATELET COUNT, AUTOMATED 222 10^3/uL (150-450); RED BLOOD COUNT 3.83 10^6/uL (4.30-6.10)
[2021-04-27 09:24] LABS: ALBUMIN 3.4 GM/DL (3.2-5.2); ALT/SGPT 20 U/L (12-78); BILIRUBIN,TOTAL 0.7 MG/DL (0.2-1.0); BLOOD UREA NITROGEN 6 MG/DL (7-18); CALCIUM LEVEL 8.6 MG/DL (8.5-10.1); CARBON DIOXIDE LEVEL 29 MEQ/L (21-32); CHLORIDE LEVEL 107 MEQ/L (98-107); CREATININE FOR GFR 0.78 MG/DL (0.70-1.30); GLOMERULAR FILTRATION RATE > 60.0 (>56); GLUCOSE, FASTING 113 MG/DL (70-100); MAGNESIUM LEVEL 2.1 MG/DL (1.8-2.4); SODIUM LEVEL 142 MEQ/L (136-145); TOTAL PROTEIN 6.4 GM/DL (6.4-8.2)
--- NOTE | 2021-04-27 11:51 | IPNPDOC ---
Date Seen The patient was seen on 04/27/21. Progress Note SUBJECTIVE: Patient seen at bedside this morning. Completing his bowel preparation for colonoscopy this afternoon by dietitian develop. Denies any pavan blood per rectum or hematemesis. OBJECTIVE PHYSICAL EXAMINATION: VITAL SIGNS: please see below General: Morbidly obese male, not in acute distress, nontoxic appearance. HEENT: PERRLA, EOMI, sclerae clear Neck: supple, normal ROM, no JVD Respiratory: lungs CTAB, no wheeze, no rales, no crackles CVS: RRR, normal S1, S2, no murmurs Abdo: soft, no masses, no hepatosplenomegaly, BS+, no rebound tenderness Extremities: Trace edema bilaterally, left greater than right. Chronic venous stasis changes. PAD suspected. MSK: no joint deformities, normal ROM Neuro: no focal neuro deficits, moving all 4 extremities, CN2-12 intact. Strength 5/5 in all 4 extremities. No nystagmus. Psych: calm, cooperative, AAO x 3 LABORATORY DATA, IMAGING STUDIES, MICROBIOLOGY: Please see below. DVT prophylaxis ordered?: SCDs and teds ASSESSMENT AND PLAN: This is a 51 y/o male with a pmh of htn, dm2, rosina, morbid obesity, blood loss anemia 2/2 gi bleed sent to hospital to be evaluated for need for blood transfusion before colonoscopy.]. . PLAN: 1. acute on chronic blood loss anemia suspected to be 2/2 GIB - Colonoscopy to be performed by Dr. Galindo, GI, tomorrow. Consult is placed. - Bowel prep per GI - NPO - CBC on arrival 8.8, repeat in am 8.4 - plan for colonoscopy 04/27/21 at 3 pm. 2. DM - sliding scale insulin - hypoglycemic protocol 3. HTN - continue amlodipine 4. Nicotine dependence - patch ordered 5. Lower extremity swelling L > R - obtain venous duplex to r/o DVT. DVT prophylaxis - Mechanical d/t procedure VS, I&O, 24H, Fishbone Vital Signs/I&O Vital Signs Date Time Temp Pulse Resp B/P (MAP) Pulse Ox O2 Delivery O2 Flow Rate FiO2 04/27/21 06:00 98.0 63 20 150/80 (103) 98 Room Air I&O- Last 24 Hours up to 6 AM 04/27/21 06:00 Intake Total 771 ml Output Total 0 ml Balance 771 ml Laboratory Data 24H LABS Laboratory Tests 2 04/26/21 19:11: Nucleated Red Blood Cells % (auto) 0.0, Prothrombin Time 14.7H, Prothromb Time International Ratio 1.12, Anion Gap 7L, Glomerular Filtration Rate > 60.0, Calcium Level 8.9 04/27/21 00:42: Bedside Glucose (Misc Panel) 115H 04/27/21 02:27: Iron Level 23L, Total Iron Binding Capacity 382, Transferrin % Saturation 6.0L, Ferritin 8L, Vitamin B12 Level 302, Folate 15.0 04/27/21 06:24: Bedside Glucose (Misc Panel) 120H 04/27/21 08:27: Immature Granulocyte % (Auto) 0.3, Neutrophils (%) (Auto) 76.6H, Lymphocytes (%) (Auto) 12.4L, Monocytes (%) (Auto) 6.1, Eosinophils (%) (Auto) 4.0H, Basophils (%) (Auto) 0.6, Neutrophils # (Auto) 5.4, Lymphocytes # (Auto) 0.9L, Monocytes # (Auto) 0.4, Eosinophils # (Auto) 0.3, Basophils # (Auto) 0.0, Nucleated Red Blood Cells % (auto) 0.0, Anion Gap 6L, Glomerular Filtration Rate > 60.0, Calcium Level 8.6, Magnesium Level 2.1, Total Bilirubin 0.7, Aspartate Amino Transf (AST/SGOT) 10, Alanine Aminotransferase (ALT/SGPT) 20, Alkaline Phosphatase 64, Total Protein 6.4, Albumin 3.4, Albumin/Globulin Ratio 1.1 04/27/21 11:16: 04/27/21 11:30: Bedside Glucose (Misc Panel) 106H CBC/BMP Laboratory Tests 04/26/21 19:11 04/27/21 02:27 04/27/21 08:27 ARTUHR PIZANO MD Apr 27, 2021 11:51
[2021-04-27] MEDS: FLEET ENEMA PR SCH (13:15)
[2021-04-27 14:00] VITALS: BP 153/76
[2021-04-27] MEDS ORDERED: propofoL 500 MG/50 ML VIAL As Ordered ONE (14:19)
[2021-04-27] MEDS ORDERED: LIDOCAINE 2% 100MG/5ML SDV (FOR ANES.) As Ordered ONE (14:19)
--- NOTE | 2021-04-27 15:59 | ROOR ---
Patient Name: Kvng Dael Procedure Date: 04/27/2021 2:29 PM Date of : 1970 Age: 51 Gender: Male Note Status: Finalized Procedure: Colonoscopy Indications: Screening for colorectal malignant neoplasm, Incidental - Acute post hemorrhagic anemia Providers: Delbert Galindo MD Referring MD: Mary Anne Novak Md Requesting Provider: Medicines: Monitored Anesthesia Care Complications: No immediate complications. Procedure: Pre-Anesthesia Assessment: - Prior to the procedure, a History and Physical was performed, and patient medications and allergies were reviewed. The patient is competent. The risks and benefits of the procedure and the sedation options and risks were discussed with the patient. All questions were answered and informed consent was obtained. Patient identification and proposed procedure were verified by the physician, the nurse and the anesthesiologist in the procedure room. Mental Status Examination: alert and oriented. Airway Examination: normal oropharyngeal airway and neck mobility. CV Examination: normal. Prophylactic Antibiotics: The patient does not require prophylactic antibiotics. Prior Anticoagulants: The patient has taken no previous anticoagulant or antiplatelet agents. ASA Grade Assessment: III - A patient with severe systemic disease. After reviewing the risks and benefits, the patient was deemed in satisfactory condition to undergo the procedure. The anesthesia plan was to use monitored anesthesia care (MAC). Immediately prior to administration of medications, the patient was re-assessed for adequacy to receive sedatives. The heart rate, respiratory rate, oxygen saturations, blood pressure, adequacy of pulmonary ventilation, and response to care were monitored throughout the procedure. The physical status of the patient was re-assessed after the procedure. The Colonoscope was introduced through the anus and advanced to the ileocecal valve. The colonoscopy was performed without difficulty. The patient tolerated the procedure well. The quality of the bowel preparation was good. The ileocecal valve was photographed. Findings: The perianal and digital rectal examinations were normal. Five sessile polyps were found in the recto-sigmoid colon. The polyps were 4 to 10 mm in size. These polyps were removed with a cold snare. Resection and retrieval were complete. To close a defect after polypectomy, one hemostatic clip was successfully placed. There was no bleeding at the end of the procedure. Non-bleeding external and internal hemorrhoids were found during retroflexion. The hemorrhoids were medium-sized. Impression: - Five 4 to 10 mm polyps at the recto-sigmoid colon, removed with a cold snare. Resected and retrieved. Clip was placed. - Non-bleeding external and internal hemorrhoids. Recommendation: - Patient has a contact number available for emergencies. The signs and symptoms of potential delayed complications were discussed with the patient. Return to normal activities tomorrow. Written discharge instructions were provided to the patient. - High fiber diet. - Continue present medications. - Await pathology results. - Perform a virtual colonoscopy at appointment to be scheduled. - Return to GI clinic in [facility] (address [address], [address], [place], [facility]) in 4 -- 6 weeks. Please call GI clinic @ [phone] for apppointment date and time. - Return to primary care physician. Procedure Code(s): --- Professional --- 79290, Colonoscopy, flexible; with removal of tumor(s), polyp(s), or other lesion(s) by snare technique Diagnosis Code(s): --- Professional --- Z12.11, Encounter for screening for malignant neoplasm of colon K63.5, Polyp of colon K64.8, Other hemorrhoids CPT copyright 2019 [employer]. All rights reserved. The codes documented in this report are preliminary and upon cpc coder review may be revised to meet current compliance requirements. Delbert Galindo MD Delbert Galindo MD 04/27/2021 3:58:32 PM Electronically signed by Delbert Galindo MD Number of Addenda: 0 Note Initiated On: 04/27/2021 2:29 PM Estimated Blood Loss: Estimated blood loss was minimal.
[2021-04-27 17:00] VITALS: BP 175/86
[2021-04-27 17:30] VITALS: BP 158/76
[2021-04-27 17:48] VITALS: BP 132/76
[2021-04-27] MEDS ORDERED: AMLO1TAB25 PO (17:50)
[2021-04-27] MEDS ORDERED: NYST10006 TOP (17:50)
[2021-04-27] MEDS ORDERED: PANT-23 PO (17:50)
--- NOTE | 2021-04-27 17:50 | DS.PDOC ---
Discharge Summary General Date of Admission Apr 26, 2021 at 18:32 Date of Discharge 04/27/21 Discharge Summary PROCEDURES PERFORMED DURING STAY: Colonoscopy performed by Dr. Galindo on 04/27/21: Findings: The perianal and digital rectal examinations were normal. Five sessile polyps were found in the recto-sigmoid colon. The polyps were 4 to 10 mm in size. These polyps were removed with a cold snare. Resection and retrieval were complete. To close a defect after polypectomy, one hemostatic clip was successfully placed. There was no bleeding at the end of the procedure. Non-bleeding external and internal hemorrhoids were found during retroflexion. The hemorrhoids were medium-sized. Impression: - Five 4 to 10 mm polyps at the recto-sigmoid colon, removed with a cold snare. Resected and retrieved. Clip was placed. - Non-bleeding external and internal hemorrhoids. Recommendation: - Patient has a contact number available for emergencies. The signs and symptoms of potential delayed complications were discussed with the patient. Return to normal activities tomorrow. Written discharge instructions were provided to the patient. - High fiber diet. - Continue present medications. - Await pathology results. - Perform a virtual colonoscopy at appointment to be scheduled. COMPLICATIONS/CHIEF COMPLAINT: Acute Post Hemoragic Anemia. HISTORY OF PRESENT ILLNESS: This is a 51 y/o male with a pmh of htn, dm2, rosina, morbid obesity, blood loss anemia 2/2 gi bleed who is seen on [facility] [place] by myself on the evening of 04/26 the night before a scheduled colonoscopy. Patient has apparently had a history of gi bleeding and blood loss anemia that has required transfusions in the past. On this suspicion, he was admitted for hospitalist evaluation to make sure that he does not need blood before his procedure. As of my exam, patient has no acute complaints. Patient states that he has felt weak and tired lately but feels as though this is due to his weight and possible deconditioning. Patient states that he has not been able to walk much lately due to pain in his knees. Patient also admits to some swelling of his left leg but states that that has been like that for some time. Patient is denying dark stools, brbpr, calf pain, chest pain, sob, wheezing, cough, hemoptysis, acute back pain, dysuria, hematuria, fevers, chills. HOSPITAL COURSE: 1. acute on chronic blood loss anemia suspected to be 2/2 GIB - s/p colonoscopy by Dr. Galindo - found 5 polyps in rectosigmoid junctions, path taken. - non bleeding external and internal hemorrhoids - Hgb ranging between 8.4 and 8.8 - per Dr. Galindo, safe for DC home. To follow up in clinic. 2. DM - sliding scale insulin - hypoglycemic protocol 3. HTN - continue amlodipine 4. Nicotine dependence - patch ordered 5. Lower extremity swelling L > R - chronic, patient had no pain, intact pulses, no pain to palpation, no erythema. DISCHARGE MEDICATIONS: Please see below. ALLERGIES: Please see below. PHYSICAL EXAMINATION ON DISCHARGE: VITAL SIGNS: please see below General: Morbidly obese male, not in acute distress, nontoxic appearance. HEENT: PERRLA, EOMI, sclerae clear Neck: supple, normal ROM, no JVD Respiratory: lungs CTAB, no wheeze, no rales, no crackles CVS: RRR, normal S1, S2, no murmurs Abdo: soft, no masses, no hepatosplenomegaly, BS+, no rebound tenderness Extremities: Trace edema bilaterally, left greater than right. Chronic venous stasis changes. PAD suspected. No pain to palpation, no erythema. MSK: no joint deformities, normal ROM Neuro: no focal neuro deficits, moving all 4 extremities, CN2-12 intact. Strength 5/5 in all 4 extremities. No nystagmus. Psych: calm, cooperative, AAO x 3 LABORATORY DATA: Please see below. PROGNOSIS: good ACTIVITY: as tolerated DIET: high fiber diet DISCHARGE PLAN: DC home. C/w iron replacement. Follow up with PCP 3-5 days. F/u with Dr. Aguero 2-4 weeks. DISPOSITION: home. DISCHARGE INSTRUCTIONS: 1. Follow up with PCP 2-5 days. 2. Follow up with Dr. Galindo in 2-4 weeks. 3. Please continue with iron replacement. 4. If you develop worsening bleeding, fatigue, chest pain, shortness of breath, palpitations, or otherwise worsening of your symptoms, please call 911 or return to the nearest ER. ITEMS TO FOLLOWUP ON ON OUTPATIENT: Final pathology from colonoscopy. DISCHARGE CONDITION: [Stable]. TIME SPENT ON DISCHARGE: 35 minutes Vital Signs/I&Os Vital Signs Date Time Temp Pulse Resp B/P (MAP) Pulse Ox O2 Delivery O2 Flow Rate FiO2 04/27/21 17:48 132/76 (94) 04/27/21 17:00 97.7 56 18 93 Room Air 04/27/21 15:55 100 I&O- Last 24 Hours up to 6 AM 04/27/21 06:00 Intake Total 771 ml Output Total 0 ml Balance 771 ml Laboratory Data Labs 24H Laboratory Tests 2 04/26/21 19:11: Nucleated Red Blood Cells % (auto) 0.0, Prothrombin Time 14.7H, Prothromb Time International Ratio 1.12, Anion Gap 7L, Glomerular Filtration Rate > 60.0, Calcium Level 8.9 04/27/21 00:42: Bedside Glucose (Misc Panel) 115H 04/27/21 02:27: Iron Level 23L, Total Iron Binding Capacity 382, Transferrin % Saturation 6.0L, Ferritin 8L, Vitamin B12 Level 302, Folate 15.0 04/27/21 06:24: Bedside Glucose (Misc Panel) 120H 04/27/21 08:27: Immature Granulocyte % (Auto) 0.3, Neutrophils (%) (Auto) 76.6H, Lymphocytes (%) (Auto) 12.4L, Monocytes (%) (Auto) 6.1, Eosinophils (%) (Auto) 4.0H, Basophils (%) (Auto) 0.6, Neutrophils # (Auto) 5.4, Lymphocytes # (Auto) 0.9L, Monocytes # (Auto) 0.4, Eosinophils # (Auto) 0.3, Basophils # (Auto) 0.0, Nucleated Red Blood Cells % (auto) 0.0, Anion Gap 6L, Glomerular Filtration Rate > 60.0, Calcium Level 8.6, Magnesium Level 2.1, Total Bilirubin 0.7, Aspartate Amino Transf (AST/SGOT) 10, Alanine Aminotransferase (ALT/SGPT) 20, Alkaline Phosphatase 64, Total Protein 6.4, Albumin 3.4, Albumin/Globulin Ratio 1.1 04/27/21 11:16: Coronavirus (COVID-19)(PCR) NEGATIVE 04/27/21 11:30: Bedside Glucose (Misc Panel) 106H 04/27/21 16:54: Bedside Glucose (Misc Panel) 94 CBC/BMP Laboratory Tests 04/26/21 19:11 04/27/21 02:27 04/27/21 08:27 FSBS Laboratory Tests Test 04/27/21 00:42 04/27/21 06:24 04/27/21 11:30 04/27/21 16:54 Range/Units Bedside Glucose (Misc Panel) 115 120 106 94 70-105 MG/DL Discharge Medications Scheduled Acetaminophen (Acetaminophen 8 Hour) 650 Mg Tablet.er, 650 MG PO BID, (Reported) Amlodipine Besylate (Amlodipine Besylate) 10 Mg Tablet, 10 MG PO DAILY Ascorbic Acid (Vitamin C) 250 Mg Tablet, 1 TAB PO DAILY Docusate Sodium (Docusate Sodium) 100 Mg Capsule, 100 MG PO BID, (Reported) Ertugliflozin Pidolate (Steglatro) 15 Mg Tablet, 15 MG PO DAILY, (Reported) Ferrous Sulfate (Ferrous Sulfate) 325 Mg Tablet.dr, 1 TAB PO DAILY Metformin HCl (Metformin HCl) 1,000 Mg Tablet, 1,000 MG PO BID, (Reported) Pantoprazole Sodium (Pantoprazole Sodium) 40 Mg Tablet.dr, 1 TAB PO DAILY Scheduled PRN Nystatin (Nystop) 60 Gm Powder, 1 DOSE TOP BIDP PRN for RASH Allergies Coded Allergies: lisinopril (Verified Allergy, Severe, throat closure, 09/03/19) ARTHUR PIZANO MD Apr 27, 2021 17:50
[2021-04-27] MEDS ORDERED: FERR325T3 PO (17:58)
[2021-04-27] MEDS ORDERED: VITA250T4 PO (17:58)
== END 2021-04-27 18:29 | disposition home or self-care (01) ==
LOC: INTOOBSV 18:32 → M ED INP 18:32 → M MSPAV 18:45
PROVIDERS: ADMIT Internal Medicine; ATTEND Family Medicine
DX: K63.5 Polyp of colon (principal); K64.4 Residual hemorrhoidal skin tags; K64.8 Other hemorrhoids; D50.0 Iron deficiency anemia secondary to blood loss (chronic); Z87.19 Personal history of other diseases of the digestive system; I10 Essential (primary) hypertension; E07.9 Disorder of thyroid, unspecified; M54.9 Dorsalgia, unspecified; E66.9 Obesity, unspecified; Z68.44 Body mass index [BMI] 60.0-69.9, adult; M79.89 Other specified soft tissue disorders; G47.30 Sleep apnea, unspecified; E11.9 Type 2 diabetes mellitus without complications; Z79.899 Other long term (current) drug therapy; Z79.84 Long term (current) use of oral hypoglycemic drugs; Z88.8 Allergy status to other drugs, medicaments and biological substances; F17.210 Nicotine dependence, cigarettes, uncomplicated
CPT/HCPCS: 36415; 45385; 80048; 80053; 82607; 82728; 82746; 83550; 83735; 85018; 85025; 85027; 85610; 88305; U0002

== ENCOUNTER → 2021-05-11 | Outpatient (CLI) | payer OTHER ==
[~2021-05-11] MED LIST changes: +DOCU100C16 PO; +FERR325T3 PO; +NYST10006 TOP; +PANT-23 PO; +QC A650T3 PO; +VITA250T4 PO
[2021-05-11 11:54] LABS: BASO # 0.1 10^3/uL (0.0-0.2); BASO % 0.7 % (0.0-1.0); EOS # 0.4 10^3/uL (0.0-0.5); EOS % 4.7 % (0.0-3.0); HEMOGLOBIN 9.6 g/dl (13.5-17.5); LYMPH # 1.1 10^3/uL (1.5-5.0); LYMPH % 12.4 % (24.0-44.0); MEAN CORPUSCULAR HEMOGLOBIN 21.6 pg (27.0-33.0); MEAN CORPUSCULAR HGB CONC 26.7 g/dl (32.0-36.5); MEAN CORPUSCULAR VOLUME 81.1 fl (80.0-96.0); MONO # 0.6 10^3/uL (0.0-0.8); MONO % 6.6 % (2.0-8.0); NEUTROPHILS # 6.4 10^3/uL (1.5-8.5); NEUTROPHILS % 75.1 % (36.0-66.0); PLATELET COUNT, AUTOMATED 251 10^3/uL (150-450); RED BLOOD COUNT 4.44 10^6/uL (4.30-6.10); WHITE BLOOD COUNT 8.5 10^3/uL (4.0-10.0)
== END ==
LOC: M WUC 10:06
PROVIDERS: ATTEND Nurse Practitioner Family
DX: Z87.19 Personal history of other diseases of the digestive system (principal)

== ENCOUNTER → 2022-01-10 | Outpatient (REF) | payer OTHER ==
[~2022-01-10] MED LIST changes: +DOK1CAP4 PO; -DOK1CAP7 PO
== END ==
LOC: M SFHCLERA 11:05
PROVIDERS: ATTEND Family Medicine
DX: L03.116 Cellulitis of left lower limb (principal); L02.416 Cutaneous abscess of left lower limb; S81.802A Unspecified open wound, left lower leg, initial encounter; X58.XXXA Exposure to other specified factors, initial encounter; Y92.9 Unspecified place or not applicable; Y93.9 Activity, unspecified; Y99.9 Unspecified external cause status

== ENCOUNTER 2022-02-15 12:39 | Outpatient (RCR) | payer OTHER | END 2022-02-16 | LOC: M PT 12:39 | PROVIDERS: ATTEND Surgery | DX: I87.312 Chronic venous hypertension (idiopathic) with ulcer of left lower extremity (principal) ==

== ENCOUNTER → 2022-03-19 | Outpatient (RCR) | payer OTHER | LOC: M PT 02-19 11:15 | PROVIDERS: ATTEND Surgery | DX: I87.312 Chronic venous hypertension (idiopathic) with ulcer of left lower extremity (principal) ==

== ENCOUNTER 2022-04-16 09:10 | Outpatient (RCR) | payer OTHER | END 2022-04-18 | LOC: M PT 09:10 | PROVIDERS: ATTEND Surgery | DX: I87.312 Chronic venous hypertension (idiopathic) with ulcer of left lower extremity (principal) ==

== ENCOUNTER → 2022-04-29 | Outpatient (CLI) | payer OTHER ==
[2022-04-29 11:38] LABS: BASO % 0.4 % (0.0-1.0); EOS # 0.3 10^3/uL (0.0-0.5); EOS % 5.1 % (0.0-3.0); HEMATOCRIT 52.5 % (42.0-52.0); HEMOGLOBIN 17.3 g/dl (13.5-17.5); LYMPH # 0.9 10^3/uL (1.5-5.0); LYMPH % 12.7 % (24.0-44.0); MEAN CORPUSCULAR HEMOGLOBIN 32.9 pg (27.0-33.0); MEAN CORPUSCULAR VOLUME 99.8 fl (80.0-96.0); MONO # 0.4 10^3/uL (0.0-0.8); MONO % 5.5 % (2.0-8.0); NEUTROPHILS # 5.1 10^3/uL (1.5-8.5); PLATELET COUNT, AUTOMATED 135 10^3/uL (150-450); RED BLOOD COUNT 5.26 10^6/uL (4.30-6.10); WHITE BLOOD COUNT 6.7 10^3/uL (4.0-10.0)
[2022-04-29 11:48] LABS: APPEARANCE, URINE CLEAR (CLEAR); BACTERIA, URINE AUTO NEGATIVE (NEGATIVE); BILIRUBIN, URINE AUTO NEGATIVE (NEGATIVE); BLOOD, URINE BLOOD NEGATIVE (NEGATIVE); COLOR, URINE YELLOW (YELLOW); GLUCOSE, URINE (UA) AUTO 3+ mg/dL (NEGATIVE); KETONE, URINE AUTO NEGATIVE (NEGATIVE); LEUKOCYTE ESTERASE, URINE AUTO NEGATIVE (NEGATIVE); MUCUS, URINE SMALL (NEGATIVE); NITRITE, URINE AUTO NEGATIVE (NEGATIVE); PROTEIN, URINE AUTO NEGATIVE (NEGATIVE); RBC, URINE AUTO 0 /HPF (0-3); SPECIFIC GRAVITY URINE AUTO 1.024 (1.002-1.035); SQUAMOUS EPITHELIAL CELL UR AU 0 /HPF (0-6); UROBILINOGEN, URINE AUTO 0.2 mg/dL (0.0-2.0); WBC, URINE AUTO 2 /HPF (0-3)
[2022-04-29 17:26] LABS: CREATININE, URINE 95.7 MG/DL; MALB URINE SIEMENS 26.1 MG/L; MAU/CREAT RATIO 27.2 MCG/MG (0.0-30.0)
[2022-04-29 18:31] LABS: ALBUMIN 3.7 GM/DL (3.2-5.2); ALT/SGPT 22 U/L (12-78); BILIRUBIN,TOTAL 0.6 MG/DL (0.2-1.0); BLOOD UREA NITROGEN 16 MG/DL (7-18); CALCIUM LEVEL 9.6 MG/DL (8.5-10.1); CARBON DIOXIDE LEVEL 29 MEQ/L (21-32); CHLORIDE LEVEL 107 MEQ/L (98-107); CHOLESTEROL LEVEL 175 MG/DL (<200); CHOLESTEROL RISK RATIO 5.645 (<5); GLOMERULAR FILTRATION RATE > 60.0 (>56); GLUCOSE, FASTING 117 MG/DL (70-100); HDL CHOLESTEROL 31 MG/DL (>40); LDL CHOLESTEROL 102 MG/DL (<100); NON-HDL-C 144 MG/DL; POTASSIUM SERUM 4.4 MEQ/L (3.5-5.1); SODIUM LEVEL 138 MEQ/L (136-145); THYROID STIMULATING HORMONE 0.883 uIU/ML (0.358-3.740); TOTAL PROTEIN 7.1 GM/DL (6.4-8.2); TRIGLYCERIDES LEVEL 212 MG/DL (<150)
[2022-04-30 00:25] LABS: HEMOGLOBIN A1c 6.4 %
== END ==
LOC: M WUC 09:13
PROVIDERS: ATTEND Physician Assistant
DX: Z12.5 Encounter for screening for malignant neoplasm of prostate (principal); E11.9 Type 2 diabetes mellitus without complications

== ENCOUNTER → 2022-06-19 | Outpatient (CLI) | payer OTHER | LOC: M SOG 07:53 | PROVIDERS: ATTEND Orthopaedic Surgery | DX: M25.511 Pain in right shoulder (principal) ==

== ENCOUNTER → 2023-01-13 | Outpatient (CLI) | payer OTHER ==
[2023-01-13 11:37] LABS: BASO % 0.5 % (0.0-1.0); EOS # 0.3 10^3/uL (0.0-0.5); EOS % 3.9 % (0.0-3.0); HEMATOCRIT 53.8 % (42.0-52.0); LYMPH % 11.7 % (24.0-44.0); MEAN CORPUSCULAR HEMOGLOBIN 33.9 pg (27.0-33.0); MEAN CORPUSCULAR HGB CONC 31.6 g/dl (32.0-36.5); MEAN CORPUSCULAR VOLUME 107.2 fl (80.0-96.0); MONO # 0.4 10^3/uL (0.0-0.8); MONO % 4.2 % (2.0-8.0); NEUTROPHILS % 79.4 % (36.0-66.0); PLATELET COUNT, AUTOMATED 158 10^3/uL (150-450); RED BLOOD COUNT 5.02 10^6/uL (4.30-6.10); WHITE BLOOD COUNT 8.8 10^3/uL (4.0-10.0)
[2023-01-13 11:49] LABS: APPEARANCE, URINE CLEAR (CLEAR); BACTERIA, URINE AUTO NEGATIVE (NEGATIVE); BILIRUBIN, URINE AUTO NEGATIVE (NEGATIVE); BLOOD, URINE BLOOD NEGATIVE (NEGATIVE); COLOR, URINE YELLOW (YELLOW); GLUCOSE, URINE (UA) AUTO 3+ mg/dL (NEGATIVE); KETONE, URINE AUTO NEGATIVE (NEGATIVE); LEUKOCYTE ESTERASE, URINE AUTO NEGATIVE (NEGATIVE); MUCUS, URINE SMALL (NEGATIVE); NITRITE, URINE AUTO NEGATIVE (NEGATIVE); PROTEIN, URINE AUTO NEGATIVE (NEGATIVE); RBC, URINE AUTO 0 /HPF (0-3); SPECIFIC GRAVITY URINE AUTO 1.036 (1.002-1.035); SQUAMOUS EPITHELIAL CELL UR AU 0 /HPF (0-6); UROBILINOGEN, URINE AUTO 0.2 mg/dL (0.0-2.0); WBC, URINE AUTO 0 /HPF (0-3)
[2023-01-13 12:13] LABS: CREATININE, URINE 82.8 MG/DL
[2023-01-13 12:14] LABS: MAU/CREAT RATIO 9.6 MCG/MG (0.0-30.0)
[2023-01-13 12:16] LABS: ALBUMIN 3.7 G/DL (3.2-5.2); ALKALINE PHOSPHATASE 93 U/L (46-116); ALT/SGPT 17 U/L (7.0-40); AST/SGOT 9 U/L (<34); BILIRUBIN,TOTAL 0.7 MG/DL (0.3-1.2); BLOOD UREA NITROGEN 16 MG/DL (9-23); CARBON DIOXIDE LEVEL 32 MMOL/L (20-31); CHLORIDE LEVEL 103 MMOL/L (98-107); CHOLESTEROL LEVEL 160 MG/DL (<200); CHOLESTEROL RISK RATIO 5.24 (<5); GLOMERULAR FILTRATION RATE > 60.0 (>56); GLUCOSE, FASTING 143 MG/DL (60-100); HDL CHOLESTEROL 30.5 MG/DL (>40); LDL CHOLESTEROL 95.3 MG/DL (<100); NON-HDL-C 129.5 MG/DL; POTASSIUM SERUM 4.3 MMOL/L (3.5-5.1); SODIUM LEVEL 141 MMOL/L (136-145); THYROID STIMULATING HORMONE 1.118 uIU/ML (0.55-4.78); TOTAL PROTEIN 6.8 G/DL (5.7-8.2); TRIGLYCERIDES LEVEL 171 MG/DL (<150)
[2023-01-13 12:47] LABS: HEMOGLOBIN A1c 6.6 % (4.0-6.0)
== END ==
LOC: M WUC 08:12
PROVIDERS: ATTEND Physician Assistant
DX: E11.9 Type 2 diabetes mellitus without complications (principal); Z12.5 Encounter for screening for malignant neoplasm of prostate